=== PATIENT | female | born 1995 | race Caucasian/White ===

== ENCOUNTER 2019-04-03 12:53 | Emergency (ER) | payer OTHER ==
--- NOTE | 2019-04-03 13:01 | EDM.PDOC ---
ED HPI GENERAL MEDICAL PROBLEM - General Chief Complaint: Abdominal Pain Stated Complaint: ABDOMINAL PAIN Time Seen by Provider: 04/03/19 13:01 Source of Information: Reports: Patient History Limitations: Reports: No Limitations - History of Present Illness INITIAL COMMENTS - FREE TEXT/NARRATIVE: Patient is a 23-year-old female who is complaining having suprapubic pain which started about 11:00 this morning approximately 4 hours prior to arrival. She describes this is somewhat sharp and stabbing and denies any nausea vomiting or diarrhea. She denies any hematuria or dysuria. She has had previously similar pain in the past at that time she was told she had a miscarriage. Patient is currently sexually active and states she had menstrual. Over 4 weeks ago but her periods are always irregular. He is not using any control and is sexually active. Denies any vaginal discharge. She denies any fever chills or any worsening of the pain with eating though pain is somewhat worse with movement. Is any previous surgical history. Onset: Today Duration: Getting Worse Location: Reports: Pelvis Quality: Reports: Ache, Sharp Severity: Moderate Improves with: Reports: Rest Worsens with: Reports: Movement Associated Symptoms: Reports: No Other Symptoms Lower Abdominal Pain Score (Numeric/FACES): 5 - Related Data Allergies Allergy/AdvReac Type Severity Reaction Status Date / Time No Known Allergies Allergy Verified 04/03/19 13:14 Home Meds: Home Meds . [No Known Home Meds] 04/03/19 [History] ED ROS GENERAL - Review of Systems Review Of Systems: Comprehensive ROS is negative, except as noted in HPI. ED EXAM, GI/ABD - Physical Exam Exam: See Below Text/Narrative:: Exam: See Below Exam Limited By: No Limitations. Patient is somewhat uncomfortable secondary to pelvic pain. Head: Atraumatic Neck: Normal Inspection. No: Carotid Bruit, Lymphadenopathy (R) Respiratory/Chest: No Respiratory Distress, Lungs Clear, Normal Breath Sounds, No Accessory Muscle Use. No: Chest Non-Tender Cardiovascular: Normal Peripheral Pulses, Regular Rate, Rhythm, No Edema, No JVD GI/Abdominal: Normal Bowel Sounds, Tender in suprapubic area. No mass appreciated. There is no guarding appreciated. There is no rebound. Back Exam: Normal Inspection. No: CVA Tenderness (R) Extremities: Normal Inspection. No: No Pedal Edema Neurological: Alert, Oriented, Normal Cognition Psychiatric: Normal Affect Skin Exam: Warm Lymphatic: No Adenopathy Course - Vital Signs Text/Narrative:: Patient's urine and lab work is all unremarkable. test is negative. I am giving her some indomethacin for possible ovarian cystic pain. I will give her a prescription for additional. I recommend she follow-up with her special education science teacher this week for recheck. She is to return to ER if having fever or shaking chill, vomiting or worse pain. She is instructed she needs to take the Indocin with meals. Last Recorded V/S: Last Vital Signs Temp 36.3 C 04/03/19 13:15 Pulse 108 H 04/03/19 13:15 Resp 16 04/03/19 13:15 BP 113/55 L 04/03/19 13:15 Pulse Ox 99 04/03/19 13:15 - Orders/Labs/Meds Orders: Active Orders 24 hr Category Date Time Status UA W/MICROSCOPIC [URIN] Stat Lab 04/03/19 15:00 Results Labs: Laboratory Tests 04/03/19 04/03/19 04/03/19 Range/Units 13:53 13:53 15:00 WBC 9.57 (4.0-11.0) K/uL RBC 4.68 (4.30-5.90) M/uL Hgb 13.5 (12.0-16.0) g/dL Hct 40.4 (36.0-46.0) % MCV 86.3 (80.0-98.0) fL MCH 28.8 (27.0-32.0) pg MCHC 33.4 (31.0-37.0) g/dL RDW Std Deviation 41.1 (28.0-62.0) fl RDW Coeff of Miakla 13 (11.0-15.0) % Plt Count 345 (150-400) K/uL MPV 10.10 (7.40-12.00) fL Neut % (Auto) 80.4 H (48.0-80.0) % Lymph % (Auto) 15.4 L (16.0-40.0) % [place] % (Auto) 3.8 (0.0-15.0) % Eos % (Auto) 0.1 (0.0-7.0) % Baso % (Auto) 0.3 (0.0-1.5) % Neut # (Auto) 7.7 H (1.4-5.7) K/uL Lymph # (Auto) 1.5 (0.6-2.4) K/uL [place] # (Auto) 0.4 (0.0-0.8) K/uL Eos # (Auto) 0.0 (0.0-0.7) K/uL Baso # (Auto) 0.0 (0.0-0.1) K/uL Nucleated RBC % 0.0 /100WBC Nucleated RBCs # 0 K/uL Sodium 136 (136-145) mmol/L Potassium 4.0 (3.5-5.1) mmol/L Chloride 103 (98-107) mmol/L Carbon Dioxide 23.5 (21.0-32.0) mmol/L BUN 10 (7.0-18.0) mg/dL Creatinine 0.7 (0.6-1.0) mg/dL Est Cr Clr Drug Dosing 103.40 mL/min Estimated GFR (MDRD) > 60.0 ml/min Glucose 94 (74-106) mg/dL Calcium 8.8 (8.5-10.1) mg/dL Total Bilirubin 1.0 (0.2-1.0) mg/dL AST 12 L (15-37) IU/L ALT 18 (14-63) IU/L Alkaline Phosphatase 40 L (46-116) U/L Total Protein 7.7 (6.4-8.2) g/dL Albumin 4.4 (3.4-5.0) g/dL Globulin 3.3 (2.6-4.0) g/dL Albumin/Globulin Ratio 1.3 (0.9-1.6) Urine Color YELLOW Urine Appearance HAZY Urine pH 6.0 (5.0-8.0) Ur Specific [place] 1.025 (1.001-1.035) Urine Protein NEGATIVE (NEGATIVE) mg/dL Urine Glucose (UA) NEGATIVE (NEGATIVE) mg/dL Urine Ketones 40 H (NEGATIVE) mg/dL Urine Occult Blood NEGATIVE (NEGATIVE) Urine Nitrite NEGATIVE (NEGATIVE) Urine Bilirubin NEGATIVE (NEGATIVE) Urine Urobilinogen 1.0 (<2.0) EU/dL Ur Leukocyte Esterase NEGATIVE (NEGATIVE) Urine HCG, Qual (NEGATIVE) 02/09/20 Range/Units 15:00 WBC (4.0-11.0) K/uL RBC (4.30-5.90) M/uL Hgb (12.0-16.0) g/dL Hct (36.0-46.0) % MCV (80.0-98.0) fL MCH (27.0-32.0) pg MCHC (31.0-37.0) g/dL RDW Std Deviation (28.0-62.0) fl RDW Coeff of Mikala (11.0-15.0) % Plt Count (150-400) K/uL MPV (7.40-12.00) fL Neut % (Auto) (48.0-80.0) % Lymph % (Auto) (16.0-40.0) % [place] % (Auto) (0.0-15.0) % Eos % (Auto) (0.0-7.0) % Baso % (Auto) (0.0-1.5) % Neut # (Auto) (1.4-5.7) K/uL Lymph # (Auto) (0.6-2.4) K/uL [place] # (Auto) (0.0-0.8) K/uL Eos # (Auto) (0.0-0.7) K/uL Baso # (Auto) (0.0-0.1) K/uL Nucleated RBC % /100WBC Nucleated RBCs # K/uL Sodium (136-145) mmol/L Potassium (3.5-5.1) mmol/L Chloride (98-107) mmol/L Carbon Dioxide (21.0-32.0) mmol/L BUN (7.0-18.0) mg/dL Creatinine (0.6-1.0) mg/dL Est Cr Clr Drug Dosing mL/min Estimated GFR (MDRD) ml/min Glucose (74-106) mg/dL Calcium (8.5-10.1) mg/dL Total Bilirubin (0.2-1.0) mg/dL AST (15-37) IU/L ALT (14-63) IU/L Alkaline Phosphatase (46-116) U/L Total Protein (6.4-8.2) g/dL Albumin (3.4-5.0) g/dL Globulin (2.6-4.0) g/dL Albumin/Globulin Ratio (0.9-1.6) Urine Color Urine Appearance Urine pH (5.0-8.0) Ur Specific [place] (1.001-1.035) Urine Protein (NEGATIVE) mg/dL Urine Glucose (UA) (NEGATIVE) mg/dL Urine Ketones (NEGATIVE) mg/dL Urine Occult Blood (NEGATIVE) Urine Nitrite (NEGATIVE) Urine Bilirubin (NEGATIVE) Urine Urobilinogen (<2.0) EU/dL Ur Leukocyte Esterase (NEGATIVE) Urine HCG, Qual NEGATIVE (NEGATIVE) Meds: Medications Discontinued Medications Generic Name Dose Route Start Last Admin Trade Name Freq PRN Reason Stop Dose Admin Indomethacin 25 mg 04/03/19 15:15 Indocin PO 04/03/19 15:16 ONETIME ONE Departure - Departure Time of Disposition: 15:20 Disposition: Home, Self-Care 01 Condition: Good Clinical Impression: Pelvic pain - Discharge Information Instructions: Pelvic Pain, Female, [id number] Referrals: PCP,None [Primary Care Provider] - Forms: ED Department Discharge Additional Instructions: Indomethacin as prescribed. Follow-up with special education science teacher for recheck this week. Return to emergency department if symptoms are worse. Care Plan Goals: The following information is given to patients seen in the emergency department who are being discharged to home. This information is to outline your options for follow-up care. We provide all patients seen in our emergency department with a follow-up referral. The need for follow-up, as well as the timing and circumstances, are variable depending upon the specifics of your emergency department visit. If you don't have a primary care physician on staff, we will provide you with a referral. We always advise you to contact your personal physician following an emergency department visit to inform them of the circumstance of the visit and for follow-up with them and/or the need for any referrals to a consulting specialist. The emergency department will also refer you to a specialist when appropriate. This referral assures that you have the opportunity for follow-up care with a specialist. All of these measure are taken in an effort to provide you with optimal care, which includes your follow-up. Under all circumstances we always encourage you to contact your private physician who remains a resource for coordinating your care. When calling for follow-up care, please make the office aware that this follow-up is from your recent emergency room visit. If for any reason you are refused follow-up, please contact the [facility] Emergency Department at and asked to speak to the emergency department charge nurse. Sepsis Event Note - Focused Exam Vital Signs: Vital Signs Temp Pulse Resp BP Pulse Ox 04/03/19 13:15 36.3 C 108 H 16 113/55 L 99 Date Exam was Performed: 04/03/19 Time Exam was Performed: 15:16 - My Orders Last 24 Hours: My Active Orders 04/03/19 15:00 UA W/MICROSCOPIC [URIN] Stat - Assessment/Plan Last 24 Hours: My Active Orders 04/03/19 15:00 UA W/MICROSCOPIC [URIN] Stat
[2019-04-03 14:20] LABS: BLOOD UREA NITROGEN,BUN 10 mg/dL (7.0-18.0); CARBON DIOXIDE,CO2 23.5 mmol/L (21.0-32.0); CHLORIDE,CL 103 mmol/L (98-107); GLUCOSE RANDOM 94 mg/dL (74-106); SODIUM,NA 136 mmol/L (136-145)
[2019-04-03] MEDS ORDERED: Indomethacin 25 MG Cap PO ONE (15:15)
== END 2019-04-03 15:54 | disposition home or self-care (01) ==
LOC: MW.ED 12:53
DX: R10.2 Pelvic and perineal pain (principal)
CPT/HCPCS: 36415; 80053; 81001; 81025; 85025; 99284; A9270; 99283

== ENCOUNTER 2019-09-27 16:28 | Observation (INO) | payer MEDICAID, OTHER ==
--- NOTE | 2019-09-27 16:58 | PCM.PREANE ---
Preanesthetic Assessment - Anesthesia/Transfusion/Family Hx Anesthesia History: No Prior Anesthesia Family History of Anesthesia Reaction: No Transfusion History: No Prior Transfusion(s) - Review of Systems General: No Symptoms Pulmonary: No Symptoms Cardiovascular: No Symptoms Gastrointestinal: No Symptoms Neurological: No Symptoms Other: Reports: None - Physical Assessment NPO Status Date: 09/27/19 NPO Status Time: 13:00 (cassie and water) Height: 5 ft 4 in Weight: 69.581 kg ASA Class: 2E Mental Status: Alert & Oriented x3 Airway Class: Mallampati = 1 Dentition: Reports: Normal Dentition Thyro-Mental Finger Breadths: 3 ROM/Head Extension: Full Lungs: Clear to Auscultation, Normal Respiratory Effort Cardiovascular: Regular Rate, Regular Rhythm - Allergies Allergies/Adverse Reactions: Allergies Allergy/AdvReac Type Severity Reaction Status Date / Time No Known Allergies Allergy Verified 04/03/19 13:14 - Acknowledgements Anesthesia Type Planned: Spinal Pt an Appropriate Candidate for the Planned Anesthesia: Yes Alternatives and Risks of Anesthesia Discussed w Pt/Guardian: Yes Pt/Guardian Understands and Agrees with Anesthesia Plan: Yes PreAnesthesia Questionnaire HEENT History: Reports: None Cardiovascular History: Reports: None Respiratory History: Reports: Asthma Gastrointestinal History: Reports: None Genitourinary History: Reports: None CIRCULAR KNITTER History: Reports: : 2 Para: 0 (1 SAB last year) Other OB/BYN History: 19 weeks with cervical insuffiency Musculoskeletal History: Reports: None Neurological History: Reports: None Psychiatric History: Reports: Anxiety, Depression, Eating Disorders, PTSD, Suicide Attempt Endocrine/Metabolic History: Reports: None Hematologic History: Reports: None Immunologic History: Reports: None Oncologic (Cancer) History: Reports: None Dermatologic History: Reports: None - Infectious Disease History Infectious Disease History: Reports: None - Past Surgical History Head Surgeries/Procedures: Reports: None HEENT Surgical History: Reports: None Cardiovascular Surgical History: Reports: None Respiratory Surgical History: Reports: None GI Surgical History: Reports: None - SUBSTANCE USE Smoking Status *Q: Former Smoker (quit few months ago) Tobacco Use Within Last Twelve Months: Cigarettes - HOME MEDS Home Medications: Home Meds Indomethacin 25 mg PO TID PRN #30 capsule 04/03/19 [Rx] - CURRENT (IN HOUSE) MEDS Current Meds: Current Medications Lactated Ringer's (Ringers, Lactated) 1,000 mls @ 100 mls/hr IV ASDIRECTED MARINE
[2019-09-27] MEDS: Lactated Ringers 1,000 ML IV SCH ×2 (17:25→21:48)
[2019-09-27] MEDS ORDERED: Acetaminophen 325 MG Tab PO PRN (18:08)
[2019-09-27] MEDS ORDERED: Indomethacin 25 MG Cap PO ONE (18:08)
--- NOTE | 2019-09-27 18:16 | PCM.OPNOTE ---
- General Post-Op/Procedure Note Date of Surgery/Procedure: 09/27/19 Operative Procedure(s): Cervical cerclage placement Findings: Pre-procedure: Cervix visually dilated 1cm, membranes visible proximal to external cervical os, cervix thin Post-procedure: Cervix closed, 1cm in length Pre Op Diagnosis: 24yo @ 19w2d. Cervical insufficiency Post-Op Diagnosis: 24yo @ 19w2d. Cervical insufficiency Anesthesia Technique: Spinal Primary Surgeon: Eunice Rudd Gluing Machine Offbearer: Real Houston Gluing Machine Offbearer: Sandra Solis Pathology: None Fluid Replacement, Intraop: 700 EBL in mLs: 5 Complications: None Condition: Good Free Text/Narrative:: FHTs 150s prior to procedure FHTs 150s post-operatively
--- NOTE | 2019-09-27 18:23 | PCM.POSTAN ---
POST ANESTHESIA ASSESSMENT - MENTAL STATUS Mental Status: Alert, Oriented - VITAL SIGNS Vital Signs: Last Vital Signs Temp 36.7 C 09/27/19 17:57 Pulse 71 09/27/19 18:18 Resp 17 09/27/19 18:18 BP 106/59 L 09/27/19 18:18 Pulse Ox 100 09/27/19 18:18 - RESPIRATORY Respiratory Status: Respiratory Rate WNL, Airway Patent, O2 Saturation Stable - CARDIOVASCULAR CV Status: Pulse Rate WNL, Blood Pressure Stable - GASTROINTESTINAL GI Status: No Symptoms - PAIN Pain Score: 0 - POST OP HYDRATION Hydration Status: Adequate & Stable - OBSERVATIONS Free Text/Narrative:: can wiggle feet and feeling is starting to return
--- NOTE | 2019-09-27 21:18 | OR ---
SURGEON: Eunice Rudd MD DATE OF PROCEDURE: 09/27/2019 PREOPERATIVE DIAGNOSES: 1. A 24-year-old, G2, P0, at 19 weeks and 2 days' gestation. 2. Cervical insufficiency on ultrasound and exam. POSTOPERATIVE DIAGNOSES: 1. A 24-year-old, G2, P0, at 19 weeks and 2 days' gestation. 2. Cervical insufficiency on ultrasound and exam. PROCEDURE: Cervical cerclage. PRIMARY SURGEON: Dr. Eunice Rudd. ANESTHESIA: Spinal. ART EDUCATION PROFESSOR: Dr. Real Houston and Luiz Solis, medical student. FINDINGS: Pre-procedure, cervix visually dilated 1 cm with membranes visible proximal to the external cervical os with thin cervix. Postprocedure cervix closed and 1 cm in length. cardiac activity documented pre and post procedure. INDICATIONS: This is a 24-year-old, G2, P0-0-1-0 at 19 weeks and 2 days' gestation by early ultrasound, who had been seen for routine OB appointment and anatomy ultrasound today in clinic. During anatomy ultrasound, cervical dilation was suspected on abdominal imaging. A transvaginal ultrasound was obtained and confirmed thin cervix with cervical dilation. Speculum exam was performed, which showed thin cervix with approximately 1 cm dilated with membrane visible proximal to the external cervical os. The need for emergency rescue cerclage was discussed with the patient and reviewed with Maternal Medicine. The patient agreed to the procedure after discussion of the risks and benefits. DESCRIPTION OF PROCEDURE: The patient was taken to the operating room where spinal anesthesia was obtained. She was placed in dorsal lithotomy position with legs in Yellofins stirrups. She was prepared and draped in normal sterile fashion. The bladder was drained. A weighted speculum was inserted into the vagina and the cervix was grasped carefully with a ring forceps. A Paz catheter was inserted through the dilated cervix and inflated with 20 mL of normal saline to reduce the visible membranes. A pursestring suture of 1-0 Prolene was placed at the vesicocervical junction. The Paz catheter was removed as the pursestring suture was being tied. A sponge stick was used to clean blood out of the vagina. The cervix appeared to be closed and roughly 1 cm in length postoperatively. The patient tolerated the procedure well. All instruments removed from her vagina. She will be the admitting for observation to Labor and Delivery for monitoring overnight. She will receive Indocin for tocolysis. [id number] / MODL /[id number]
[2019-09-27] MEDS: busPIRone 5 MG Tab PO SCH (21:50)
[2019-09-27] MEDS: metroNIDAZOLE 250 MG Tab PO SCH (21:50)
[2019-09-28] MEDS: Indomethacin 25 MG Cap PO SCH ×3 (00:29→12:05)
--- NOTE | 2019-09-28 07:29 | PCM.PN ---
- General Info Date of Service: 09/28/19 Subjective Update: Patient with mild intermittent cramps, rates them at 3/10. Light spotting. Functional Status: Reports: Tolerating Diet, Urinating - Review of Systems General: Reports: No Symptoms HEENT: Reports: No Symptoms Pulmonary: Reports: No Symptoms Cardiovascular: Reports: No Symptoms Gastrointestinal: Reports: No Symptoms Genitourinary: Reports: No Symptoms Musculoskeletal: Reports: No Symptoms Skin: Reports: No Symptoms Neurological: Reports: No Symptoms Psychiatric: Reports: No Symptoms - Patient Data Vitals - Most Recent: Last Vital Signs Temp 36.6 C 09/28/19 03:35 Pulse 86 09/28/19 03:35 Resp 18 09/28/19 03:35 BP 98/56 L 09/28/19 03:35 Pulse Ox 100 09/28/19 03:35 Weight - Most Recent: 69.581 kg I&O - Last 24 Hours: Intake & Output 09/27/19 09/28/19 09/28/19 22:59 06:59 14:59 Intake Total 1700 Balance 1700 Lab Results Last 24 Hours: Laboratory Results - last 24 hr 09/27/19 Range/Units 16:35 COVID-19 (SHONA) NEGATIVE (NEGATIVE) Med Orders - Current: Current Medications Acetaminophen (Tylenol) 650 mg PO Q4H PRN PRN Reason: Abdominal Pain Buspirone HCl (Buspar) 10 mg PO BID [facility] Last Admin: 09/27/19 21:50 Dose: 10 mg Documented by: Lactated Ringer's (Ringers, Lactated) 1,000 mls @ 100 mls/hr IV ASDIRECTED [facility] Last Admin: 09/27/19 21:48 Dose: 100 mls/hr Documented by: Indomethacin (Indocin) 25 mg PO Q6H [facility] Last Admin: 09/28/19 06:06 Dose: 25 mg Documented by: Metronidazole (Metronidazole) 500 mg PO Q12HR [facility] Last Admin: 09/27/19 21:50 Dose: 500 mg Documented by: Prenat Multivit/Barry/Iron/Folic Ac ( Mtr) 1 each PO DAILY [facility] Sertraline HCl (Zoloft) 50 mg PO DAILY [facility] Discontinued Medications Indomethacin (Indocin) 50 mg PO ONETIME ONE Stop: 09/27/19 18:09 Last Admin: 09/27/19 18:43 Dose: 50 mg Documented by: - Exam General: Alert, Oriented Neck: Supple Lungs: Normal Respiratory Effort GI/Abdominal Exam: Soft, Non-Tender, No Distention (Female) Exam: Deferred Extremities: No Pedal Edema Skin: Warm, Dry, Intact Neurological: No New Focal Deficit Psy/Mental Status: Alert, Normal Affect, Normal Mood Sepsis Event Note - Focused Exam Vital Signs: Vital Signs Temp Pulse Resp BP Pulse Ox 09/28/19 03:35 36.6 C 86 18 98/56 L 100 09/28/19 00:29 36.7 C 93 15 99/63 100 Date Exam was Performed: 09/28/19 Time Exam was Performed: 07:24 - Problem List & Annotations (1) Cervical insufficiency in in second trimester, antepartum SNOMED Code(s): 6956234, 66485265, 09588591 Code(s): O34.32 - MATERNAL CARE FOR CERVICAL INCOMPETENCE, SECOND TRIMESTER Status: Acute Current Visit: Yes (2) Cervical cerclage suture present in second trimester SNOMED Code(s): 45892148, 07982489 Code(s): O34.32 - MATERNAL CARE FOR CERVICAL INCOMPETENCE, SECOND TRIMESTER Status: Acute Current Visit: Yes - Problem List Review Problem List Initiated/Reviewed/Updated: Yes - My Orders Last 24 Hours: My Active Orders 09/27/19 Dinner Regular Diet [DIET] 09/27/19 18:06 Patient Status [ADT] Routine Vital Signs [RC] PER UNIT ROUTINE Resuscitation Status Routine 09/27/19 18:07 Notify Provider Vital Signs [RC] PRN 09/27/19 18:08 Antiembolic Devices [RC] .Routine Bedrest Bathroom Privileges [RC] ASDIRECTED Trendelenburg [RC] ASDIRECTED VTE/DVT Education [RC] PER UNIT ROUTINE Acetaminophen [Tylenol] 650 mg PO Q4H PRN DVT/VTE Prophylaxis Reflex [OM.PC] Routine 09/27/19 18:10 TOCO Ext [Uterine Contraction Monitor TOCO] [WOMSER] Routine 09/27/19 18:13 Uterine Contraction Monitor [RC] Click to Edit 09/27/19 21:00 metroNIDAZOLE 500 mg PO Q12HR 09/27/19 21:26 Heart Tones [RC] QSHIFT 09/27/19 21:30 busPIRone [Buspar] 10 mg PO BID 09/28/19 00:00 Indomethacin [Indocin] 25 mg PO Q6H 09/28/19 09:00 Vit/FA/Fe Fumarate/Se [ MTR] 1 each PO DAILY Sertraline [Zoloft] 50 mg PO DAILY - Assessment Assessment:: 24yo @ 19w3d, POD#1 s/p emergency cervical cerclage placement - Plan Plan:: 1. Continue Indomethacin x48 hours 2. Reviewed precautions and restrictions until 24 weeks - no heavy lifting, pelvic rest, no strenuous activity; avoid bed rest due to increased risk of VTE and deconditioning 3. Continue Flagyl for BV for a total of 7 days 4. Has appointment scheduled for Thursday, 09/29 in clinic
[2019-09-28] MEDS: Lactated Ringers 1,000 ML IV SCH (07:47)
[2019-09-28] MEDS: busPIRone 5 MG Tab PO SCH (08:48)
[2019-09-28] MEDS: metroNIDAZOLE 250 MG Tab PO SCH (08:49)
[2019-09-28] MEDS ORDERED: Prenatal Multivitamin and Multimineral with Iron Tab PO SCH (09:00)
[2019-09-28] MEDS ORDERED: Sertraline 50 MG Tab PO SCH (09:00)
--- NOTE | 2019-09-28 09:11 | PCM48HPAN ---
Post Anesthesia Note - EVALUATION WITHIN 48HRS OF ANESTHETIC Vital Signs in Normal Range: Yes Patient Participated in Evaluation: Yes Respiratory Function Stable: Yes Airway Patent: Yes Cardiovascular Function Stable: Yes Hydration Status Stable: Yes Pain Control Satisfactory: Yes (3/10 pain, "a little sore, but not bad" per pt. Denies spinal site pain.) Nausea and Vomiting Control Satisfactory: Yes (mild nausea last night, but resolved, and no vomiting. Taking PO well.) Mental Status Recovered: Yes Vital Signs: Last Vital Signs Temp 36.6 C 09/28/19 03:35 Pulse 86 09/28/19 03:35 Resp 18 09/28/19 03:35 BP 98/56 L 09/28/19 03:35 Pulse Ox 100 09/28/19 03:35 - COMMENTS/OBSERVATIONS Free Text/Narrative:: Reports full return of strength and sensation in BLE, ambulating well.
== END 2019-09-28 14:05 | disposition home or self-care (01) ==
LOC: MW.SDS 16:28 → MW.OB 18:06
PROVIDERS: ADMIT Obstetrics & Gynecology; ATTEND Obstetrics & Gynecology
DX: O34.32 Maternal care for cervical incompetence, second trimester (principal); O28.3 Abnormal ultrasonic finding on antenatal screening of mother; O99.512 Diseases of the respiratory system complicating pregnancy, second trimester; J45.909 Unspecified asthma, uncomplicated; O99.342 Other mental disorders complicating pregnancy, second trimester; F41.9 Anxiety disorder, unspecified; F32.9 Major depressive disorder, single episode, unspecified; F43.10 Post-traumatic stress disorder, unspecified; Z11.59 Encounter for screening for other viral diseases; Z87.891 Personal history of nicotine dependence; Z3A.19 19 weeks gestation of pregnancy
CPT/HCPCS: 59320; 87635; A9270; G0378; J7120; 00948; U0002

== ENCOUNTER 2019-11-14 05:31 | Inpatient (IN) | payer MEDICAID ==
[2019-11-14] MEDS ORDERED: Betamethasone Acetate/Betamethasone Sod Phosphate 30 MG/5 ML MDV IM ONE (07:04)
[2019-11-14] MEDS ORDERED: Ampicillin 2 GM in Sodium Chloride 0.9% 100 ML IV ONE (07:05)
[2019-11-14] MEDS: Lactated Ringers 1,000 ML IV SCH ×2 (07:10→09:47)
[2019-11-14] MEDS ORDERED: Sodium Chloride 0.9% 2.5 ML Syringe FLUSH PRN (07:11)
[2019-11-14] MEDS ORDERED: Indomethacin 25 MG Cap PO ONE (07:11)
[2019-11-14] MEDS ORDERED: Sodium Chloride 0.9% 10 ML SDV IV PRN (07:11)
[2019-11-14] MEDS ORDERED: Sodium Chloride 0.9% 10 ML Syringe FLUSH PRN (07:11)
[2019-11-14] MEDS ORDERED: Calcium Gluconate 10% 1 GM/10 ML SDV IV PRN (07:11)
[2019-11-14] MEDS ORDERED: Magnesium Sulfate/Water 4 GM in Premix Bag 1 BAG IV ONE (07:11)
[2019-11-14] MEDS ORDERED: Magnesium Sulfate/Water 20 GM/500 ML BAG IV SCH (07:15)
[2019-11-14] MEDS ORDERED: Oxytocin/0.9 % Sodium Chloride 30 UNIT/500 ML BAG ONE (07:21)
[2019-11-14] MEDS ORDERED: Betamethasone Acetate/Betamethasone Sod Phosphate 30 MG/5 ML MDV ONE (07:21)
[2019-11-14] MEDS ORDERED: Magnesium Sulfate/Water 100 ML ONE (07:22)
[2019-11-14] MEDS ORDERED: Lidocaine 1% 50 ML MDV INJECT PRN (07:35)
[2019-11-14] MEDS ORDERED: Carboprost Tromethamine 250 MCG/1 ML Amp IM PRN (07:35)
[2019-11-14] MEDS ORDERED: Methylergonovine 0.2 MG/1 ML Amp IM PRN (07:35)
[2019-11-14] MEDS ORDERED: Misoprostol 200 MCG Tab PO PRN (07:35)
[2019-11-14] MEDS ORDERED: Nalbuphine 10 MG/1 ML Vial IVPUSH PRN (07:35)
[2019-11-14] MEDS ORDERED: Water For Irrigation,Sterile 1,000 ML Container IRR PRN (07:35)
[2019-11-14] MEDS ORDERED: Tranexamic Acid 1,000 MG in Sodium Chloride 0.9% 100 ML IV PRN (07:35)
[2019-11-14] MEDS ORDERED: Butorphanol 1 MG/ML SDV IVPUSH PRN (07:35)
[2019-11-14] MEDS ORDERED: Oxytocin/0.9 % Sodium Chloride 30 UNIT/500 ML BAG IV SCH (07:45)
--- NOTE | 2019-11-14 07:54 | PCM.LDHP ---
L&D History of Present Illness - General Date of Service: 11/14/19 Admit Problem/Dx: Patient Status Order with Admit Dx/Problem 11/14/19 05:40 Patient Status [ADT] Routine Admission Diagnosis/Problem Admission Diagnosis/Problem - History of Present Illness Introduction:: 24yo @26w1d SANDRA 02/19/2020 by 14w2d US. complicated by cervical insufficiency at 19wk, was 1cm dilated and received a rescue cerclage. She did well after and had normal anatomy US. She started to have back pain and contractions starting yesterday, got increasingly stronger. When she presented to L&D, she was alejandra every 5min, found to be 4cm dilated with bulging membranes, cerclage is still in place. She also had light bloody show. - Related Data Allergies/Adverse Reactions: Allergies Allergy/AdvReac Type Severity Reaction Status Date / Time No Known Allergies Allergy Verified 11/14/19 05:58 Home Medications: Home Meds Indomethacin 25 mg PO TID PRN #30 capsule 04/03/19 [Rx] Indomethacin 25 mg PO Q6H #4 capsule 09/28/19 [Rx] metroNIDAZOLE [Metronidazole] 500 mg PO BID 6 Days #12 tablet 09/28/19 [Rx] Past Medical History HEENT History: Reports: None Cardiovascular History: Reports: None Respiratory History: Reports: Asthma Gastrointestinal History: Reports: None Genitourinary History: Reports: None [employer] History: Reports: Other OB/BYN History: 19 weeks with cervical insuffiency Musculoskeletal History: Reports: None Neurological History: Reports: None Psychiatric History: Reports: Anxiety, Depression, Eating Disorders, PTSD, Suicide Attempt Endocrine/Metabolic History: Reports: None Hematologic History: Reports: None Immunologic History: Reports: None Oncologic (Cancer) History: Reports: None Dermatologic History: Reports: None - Infectious Disease History Infectious Disease History: Reports: None - Past Surgical History Head Surgeries/Procedures: Reports: None HEENT Surgical History: Reports: None Cardiovascular Surgical History: Reports: None Respiratory Surgical History: Reports: None GI Surgical History: Reports: None Social & Family History - Family History Family Medical History: Noncontributory - Caffeine Use Caffeine Use: Reports: Coffee H&P Review of Systems - Review of Systems: Review Of Systems: See Below General: Reports: No Symptoms HEENT: Reports: No Symptoms Pulmonary: Reports: No Symptoms Cardiovascular: Reports: No Symptoms Gastrointestinal: Reports: No Symptoms Genitourinary: Reports: No Symptoms Musculoskeletal: Reports: No Symptoms Skin: Reports: No Symptoms Psychiatric: Reports: No Symptoms Neurological: Reports: No Symptoms Hematologic/Lymphatic: Reports: No Symptoms Immunologic: Reports: No Symptoms L&D Exam - Exam Exam: See Below - Vital Signs Weight: 174 lb - OB Specific Contraction Intensity: Moderate to Strong Heart Tones per Min: 140 Heart Rate (FHR) Variability: Moderate (6-25 bmp) Presentation: Vertex - Stringer Score Stringer Score Consistency: Soft Stringer Score Dilation: 3-4 cm Stringer Score 's Station: -1 ,0 - Exam General: Alert, Oriented, Cooperative Neck: Supple, Trachea Midline Lungs: Normal Respiratory Effort GI/Abdominal Exam: Soft, Non-Tender, No Distention Genitourinary: Other Extremities: Normal Inspection, Normal Range of Motion, Non-Tender, No Pedal Edema Skin: Warm, Dry, Intact Neurological: Cranial Nerves Intact Psychiatric: Alert, Normal Affect, Normal Mood - Patient Data Lab Results Last 24 hrs: Laboratory Results - last 24 hr 11/14/19 Range/Units 06:55 Membrane Rupture POSITIVE Result Diagrams: 11/14/19 07:36 Problem List Initiated/Reviewed/Updated: Yes Orders Last 24hrs: Active Orders 24 hr Category Date Time Status Patient Status [ADT] Routine ADT 11/14/19 05:40 Active Bedrest [RC] ASDIRECTED Care 11/14/19 07:11 Active Communication Order [RC] PRN Care 11/14/19 07:11 Active Communication Order [RC] PRN Care 11/14/19 07:11 Active Equipment to Bedside [RC] PRN Care 11/14/19 07:12 Active Heart Tones [RC] ASDIRECTED Care 11/14/19 07:12 Active Non Stress Test [RC] PER UNIT ROUTINE Care 11/14/19 05:59 Active Height and Weight [RC] DAILY Care 11/14/19 07:11 Active Intake and Output [RC] QSHIFT Care 11/14/19 07:11 Active Notify Provider Status Change [RC] ASDIRECTED Care 11/14/19 07:12 Active Notify Provider [RC] PRN Care 11/14/19 07:11 Active Oxygen Therapy [RC] PRN Care 11/14/19 07:11 Active Peripheral IV Care [RC] PRN Care 11/14/19 07:11 Active Up ad Marielos [RC] ASDIRECTED Care 11/14/19 05:59 Active Vaginal Exam [RC] Click to Edit Care 11/14/19 05:59 Active Vital Signs [RC] PER UNIT ROUTINE Care 11/14/19 05:59 Active CBC WITH AUTO DIFF [HEME] Routine Lab 11/14/19 07:04 Ordered CORONAVIRUS COVID-19 PCR PHL Urgent Lab 11/14/19 07:05 Ordered MAGNESIUM [CHEM] Q6H Lab 11/14/19 12:00 Ordered MAGNESIUM [CHEM] Q6H Lab 11/14/19 18:00 Ordered MAGNESIUM [CHEM] Q6H Lab 11/15/19 00:00 Ordered MAGNESIUM [CHEM] Q6 Lab 11/15/19 06:00 Ordered RPR (SYPHILIS SERO) W/ RFLX [REF] Urgent Lab 11/14/19 07:15 Ordered TYPE AND SCREEN [BBK] Routine Lab 11/14/19 07:11 Ordered Calcium Gluconate Med 11/14/19 07:11 Active 1 gm IV ASDIRECTED PRN Lactated Ringers [Ringers, Lactated] 1,000 ml Med 11/14/19 07:15 Active IV ASDIRECTED Magnesium Sulfate/Water [Magnesium Sulfate in Water Med 11/14/19 07:15 Active Premix] 20 gm in 500 ml IV ASDIRECTED Sodium Chloride 0.9% [Normal Saline] Med 11/14/19 07:11 Active 10 ml IV ASDIRECTED PRN Sodium Chloride 0.9% [Saline Flush] Med 11/14/19 07:11 Active 10 ml FLUSH ASDIRECTED PRN Sodium Chloride 0.9% [Saline Flush] Med 11/14/19 07:11 Active 2.5 ml FLUSH ASDIRECTED PRN Deep Tendon Reflexes [WOMSER] Q1H Oth 11/14/19 07:15 Ordered Deep Tendon Reflexes [WOMSER] Q1H Oth 11/14/19 08:15 Ordered Deep Tendon Reflexes [WOMSER] Q1H Oth 11/14/19 09:15 Ordered Deep Tendon Reflexes [WOMSER] Q1H Oth 11/14/19 10:15 Ordered Deep Tendon Reflexes [WOMSER] Q1H Oth 11/14/19 11:15 Ordered Deep Tendon Reflexes [WOMSER] [address] 11/14/19 12:15 Ordered Deep Tendon Reflexes [WOMSER] [address] 11/14/19 13:15 Ordered Deep Tendon Reflexes [WOMSER] [address] 11/14/19 14:15 Ordered Deep Tendon Reflexes [WOMSER] [address] 11/14/19 15:15 Ordered Deep Tendon Reflexes [WOMSER] [address] 11/14/19 16:15 Ordered Deep Tendon Reflexes [WOMSER] [address] 11/14/19 17:15 Ordered Deep Tendon Reflexes [WOMSER] [address] 11/14/19 18:15 Ordered Deep Tendon Reflexes [WOMSER] [address] 11/14/19 19:15 Ordered Deep Tendon Reflexes [WOMSER] [address] 11/14/19 20:15 Ordered Deep Tendon Reflexes [WOMSER] [address] 11/14/19 21:15 Ordered Deep Tendon Reflexes [WOMSER] [address] 11/14/19 22:15 Ordered Deep Tendon Reflexes [WOMSER] [address] 11/14/19 23:15 Ordered Deep Tendon Reflexes [WOMSER] [address] 11/15/19 00:15 Ordered Deep Tendon Reflexes [WOMSER] [address] 11/15/19 01:15 Ordered Deep Tendon Reflexes [WOMSER] [address] 11/15/19 02:15 Ordered Deep Tendon Reflexes [WOMSER] [address] 11/15/19 03:15 Ordered Deep Tendon Reflexes [WOMSER] [address] 11/15/19 04:15 Ordered Deep Tendon Reflexes [WOMSER] [address] 11/15/19 05:15 Ordered Deep Tendon Reflexes [WOMSER] [address] 11/15/19 06:15 Ordered Electronic Heart Tones Ext w TOCO [WOMSER] Per Ot 11/14/19 07:11 O rdered Unit Routine Peripheral IV Insertion Adult [OM.PC] Routine Ot 11/14/19 07:11 Ordered Resuscitation Status Routine Resus Stat 11/14/19 05:59 Ordered Medication Orders Calcium Gluconate (Calcium Gluconate) 1 gm IV ASDIRECTED PRN PRN Reason: respiratory distress Lactated Ringer's (Ringers, Lactated) 1,000 mls @ 150 mls/hr IV ASDIRECTED [facility] Last Admin: 11/14/19 07:10 Dose: 500 mls/hr Documented by: OG Magnesium Sulfate (Magnesium Sulfate In Water Premix) 20 gm in 500 mls @ 50 mls/hr IV ASDIRECTED [facility] Sodium Chloride (Saline Flush) 10 ml FLUSH ASDIRECTED PRN PRN Reason: Keep Vein Open Sodium Chloride (Saline Flush) 2.5 ml FLUSH ASDIRECTED PRN PRN Reason: Keep Vein Open Sodium Chloride (Normal Saline) 10 ml IV ASDIRECTED PRN PRN Reason: IV Use Assessment/Plan Comment:: 24yo @26w1d presenting with labor. Hx of cervical insufficiency with cerclage in place. - Will admit for PTL, admission labs and COVID19. - Cat 1 tracing - 5cm dilated with bulging membranes and cerclage in place. Continues to have strong contractions every 5-7min - Cephalic by bedside sono and exam - Received betamethasone x1, 2g ampicillin IV, Mag sulfate 4g load, and indomethacin 100mg PO - Patient in active labor, not safe for transfer to high level facility due to risk of imminent delivery. Informed Peds and [facility] transport team who will come to evaluate the baby. Signed out to who will be assuming care of the patient.
[2019-11-14] MEDS ORDERED: Terbutaline 1 MG/ML SDV SUBCUT ONE (08:54)
[2019-11-14] MEDS ORDERED: Terbutaline 1 MG/ML SDV ONE (08:57)
[2019-11-14] MEDS ORDERED: Ropivacaine HCl/PF 100 ML ONE (09:28)
[2019-11-14] MEDS ORDERED: ePHEDrine 50 MG/ML SDV ONE (09:51)
--- NOTE | 2019-11-14 10:09 | PCM.PREANE ---
Preanesthetic Assessment - Anesthesia/Transfusion/Family Hx Anesthesia History: No Prior Anesthesia (difficult spinal for cervical cerclage) Transfusion History: No Prior Transfusion(s) - Review of Systems General: No Symptoms Pulmonary: No Symptoms Cardiovascular: No Symptoms Gastrointestinal: No Symptoms Neurological: No Symptoms Other: Reports: None - Physical Assessment Height: 1.63 m Weight: 78.925 kg ASA Class: 2 Mental Status: Alert & Oriented x3 Airway Class: Mallampati = 2 Dentition: Reports: Normal Dentition Thyro-Mental Finger Breadths: 3 Mouth Opening Finger Breadths: 3 ROM/Head Extension: Full Lungs: Clear to Auscultation, Normal Respiratory Effort Cardiovascular: Regular Rate, Regular Rhythm - Lab Values: Laboratory Last Values WBC 13.68 K/uL (4.0-11.0) H 11/14/19 07:36 RBC 3.99 M/uL (4.30-5.90) L 11/14/19 07:36 Hgb 11.5 g/dL (12.0-16.0) L 11/14/19 07:36 Hct 35.8 % (36.0-46.0) L 11/14/19 07:36 MCV 89.7 fL (80.0-98.0) 11/14/19 07:36 MCH 28.8 pg (27.0-32.0) 11/14/19 07:36 MCHC 32.1 g/dL (31.0-37.0) 11/14/19 07:36 RDW Std Deviation 42.7 fl (28.0-62.0) 11/14/19 07:36 RDW Coeff of Mikala 13 % (11.0-15.0) 11/14/19 07:36 Plt Count 213 K/uL (150-400) 11/14/19 07:36 MPV 10.20 fL (7.40-12.00) 11/14/19 07:36 Neut % (Auto) 85.0 % (48.0-80.0) H 11/14/19 07:36 Lymph % (Auto) 9.7 % (16.0-40.0) L 11/14/19 07:36 [place] % (Auto) 4.8 % (0.0-15.0) 11/14/19 07:36 Eos % (Auto) 0.4 % (0.0-7.0) 11/14/19 07:36 Baso % (Auto) 0.1 % (0.0-1.5) 11/14/19 07:36 Neut # (Auto) 11.6 K/uL (1.4-5.7) H 11/14/19 07:36 Lymph # (Auto) 1.3 K/uL (0.6-2.4) 11/14/19 07:36 [place] # (Auto) 0.7 K/uL (0.0-0.8) 11/14/19 07:36 Eos # (Auto) 0.1 K/uL (0.0-0.7) 11/14/19 07:36 Baso # (Auto) 0.0 K/uL (0.0-0.1) 11/14/19 07:36 Nucleated RBC % 0.0 /100WBC 11/14/19 07:36 Nucleated RBCs # 0 K/uL 11/14/19 07:36 Membrane Rupture POSITIVE 11/14/19 06:55 SARS-CoV-2 RNA (SHONA) NEGATIVE (NEGATIVE) 11/14/19 07:20 Blood Type B POSITIVE 11/14/19 07:36 Antibody Screen NEGATIVE 11/14/19 07:36 - Allergies Allergies/Adverse Reactions: Allergies Allergy/AdvReac Type Severity Reaction Status Date / Time No Known Allergies Allergy Verified 11/14/19 05:58 - Acknowledgements Anesthesia Type Planned: Epidural (patient understands and accepts risks and benefits of epidural. all questions answered. patient signed the consent) Pt an Appropriate Candidate for the Planned Anesthesia: Yes Alternatives and Risks of Anesthesia Discussed w Pt/Guardian: Yes Pt/Guardian Understands and Agrees with Anesthesia Plan: Yes PreAnesthesia Questionnaire HEENT History: Reports: None Cardiovascular History: Reports: None Respiratory History: Reports: Asthma (used inhaler 6 months ago) Gastrointestinal History: Reports: GERD (during ) Genitourinary History: Reports: None [employer]IST History: Reports: Other OB/BYN History: 19 weeks with cervical insuffiency Musculoskeletal History: Reports: Back Pain, Chronic (began at 14 y.o. not sure of etiology. had some radiculopathy in both legs occasionally. was told that she might have fibromyalgia.) Neurological History: Reports: None Psychiatric History: Reports: Anxiety, Depression, Eating Disorders, PTSD, Suicide Attempt Endocrine/Metabolic History: Reports: None Hematologic History: Reports: None Immunologic History: Reports: None Oncologic (Cancer) History: Reports: None Dermatologic History: Reports: None - Infectious Disease History Infectious Disease History: Reports: None - Past Surgical History Head Surgeries/Procedures: Reports: None HEENT Surgical History: Reports: None Cardiovascular Surgical History: Reports: None Respiratory Surgical History: Reports: None GI Surgical History: Reports: None Female Surgical History: Reports: Other (See Below) (cervical cerclage) - SUBSTANCE USE Smoking Status *Q: Current Every Day Smoker (but none during ) Days Per Week of Alcohol Use: 0 (none during ) Recreational Drug Use History: No - HOME MEDS Home Medications: Home Meds Indomethacin 25 mg PO TID PRN #30 capsule 04/03/19 [Rx] Indomethacin 25 mg PO Q6H #4 capsule 09/28/19 [Rx] metroNIDAZOLE [Metronidazole] 500 mg PO BID 6 Days #12 tablet 09/28/19 [Rx] - CURRENT (IN HOUSE) MEDS Current Meds: Current Medications Butorphanol Tartrate (Stadol) 1 mg IVPUSH Q1H PRN PRN Reason: Pain Calcium Gluconate (Calcium Gluconate) 1 gm IV ASDIRECTED PRN PRN Reason: respiratory distress Carboprost Tromethamine (Hemabate Ds) 250 mcg IM ASDIRECTED PRN PRN Reason: Post Hemorrhage Lactated Ringer's (Ringers, Lactated) 1,000 mls @ 150 mls/hr IV ASDIRECTED [facility] Last Admin: 11/14/19 09:47 Dose: 500 mls/hr Documented by: Magnesium Sulfate (Magnesium Sulfate In Water Premix) 20 gm in 500 mls @ 50 mls/hr IV ASDIRECTED [facility] Last Admin: 11/14/19 07:52 Dose: 2 gm/hr, 50 mls/hr Documented by: Oxytocin/Sodium Chloride (Oxytocin 30 Unit/500 Ml-Ns) 30 unit in 500 mls @ 999 mls/hr IV TITRATE [facility] Tranexamic Acid 1,000 mg/ (Sodium Chloride) 110 mls @ 660 mls/hr IV ONETIME PRN PRN Reason: Bleeding Lidocaine HCl (Xylocaine 1%) 50 ml INJECT ONETIME PRN PRN Reason: Laceration repair Methylergonovine Maleate (Methergine) 0.2 mg IM ASDIRECTED PRN PRN Reason: Post Hemorrhage Misoprostol (Cytotec) 200 mcg PO ONETIME PRN PRN Reason: Post Hemorrhage Sodium Chloride (Saline Flush) 10 ml FLUSH ASDIRECTED PRN PRN Reason: Keep Vein Open Sodium Chloride (Saline Flush) 2.5 ml FLUSH ASDIRECTED PRN PRN Reason: Keep Vein Open Sodium Chloride (Normal Saline) 10 ml IV ASDIRECTED PRN PRN Reason: IV Use Sterile Water (Sterile Water For Irrigation) 1,000 ml IRR ASDIRECTED PRN PRN Reason: delivery Discontinued Medications Betamethasone Acet/Betameth SodPhos (Celestone Soluspan 6 Mg/Ml) 12 mg IM ONETIME ONE Stop: 11/14/19 07:05 Last Admin: 11/14/19 07:29 Dose: 2 ml Documented by: Betamethasone Acet/Betameth SodPhos (Celestone Soluspan 6 Mg/Ml) Confirm Administered Dose 30 mg .ROUTE .STK-MED ONE Stop: 11/14/19 07:22 Ephedrine Sulfate (Ephedrine Sulfate) Confirm Administered Dose 50 mg .ROUTE .STK-MED ONE Stop: 11/14/19 09:52 Ampicillin Sodium 2 gm/ Sodium (Chloride) 100 mls @ 200 mls/hr IV ONETIME ONE Stop: 11/14/19 07:34 Last Admin: 11/14/19 07:53 Dose: 200 mls/hr Documented by: Magnesium Sulfate 4 gm/ Premix 100 mls @ 300 mls/hr IV BOLUS ONE Stop: 11/14/19 07:30 Last Admin: 11/14/19 07:34 Dose: 300 mls/hr Documented by: Oxytocin/Sodium Chloride (Oxytocin 30 Unit/500 Ml-Ns) Confirm Administered Dose 30 unit in 500 mls @ as directed .ROUTE .STK-MED ONE Stop: 11/14/19 07:22 Magnesium Sulfate (Magnesium Sulfate In Water Premix) Confirm Administered Dose 100 mls @ as directed .ROUTE .STK-MED ONE Stop: 11/14/19 07:23 Ropivacaine (Naropin 0.2%) Confirm Administered Dose 100 mls @ as directed .ROUTE .STK-MED ONE Stop: 11/14/19 09:29 Indomethacin (Indocin) 100 mg PO ONETIME ONE Stop: 11/14/19 07:12 Last Admin: 11/14/19 07:49 Dose: 100 mg Documented by: Terbutaline Sulfate (Brethine) 0.25 mg SUBCUT ONETIME ONE Stop: 11/14/19 08:55 Last Admin: 11/14/19 09:06 Dose: 0.25 mg Documented by: Terbutaline Sulfate (Brethine) Confirm Administered Dose 1 mg .ROUTE .K-MED ONE Stop: 11/14/19 08:58
--- NOTE | 2019-11-14 10:39 | US ---
Limited obstetrical ultrasound: Multiple real-time images were obtained for position. Comparison: No previous studies are currently is available. Dates: Current ultrasound: SANDRA 02/20/20, gestational age 28 weeks 0 days presentation: Cephalic Amniotic fluid: ELOISA 7.77 cm Measurements: BPD: 6.25 cm - 25 weeks 3 days Head circumference: 24.80 cm - 26 weeks 6 days Abdominal circumference: 20.86 cm - 25 weeks 3 days Femur length: 4.95 cm - 26 weeks 5 days Estimated weight: 880 g (1 lb. 15 oz.) Heart rate: 121 BPM Impression: 1. Single intrauterine fetus currently cephalic in presentation. Dates as noted above. 2. Low ELOISA of 7.77 cm. 3. Normal heart rate. Diagnostic code #3 This report was dictated in MDT
[2019-11-14] MEDS ORDERED: Ibuprofen 400 MG Tab PO PRN (11:57)
[2019-11-14] MEDS ORDERED: Acetaminophen 500 MG Tab PO PRN ×2 (11:57)
[2019-11-14] MEDS ORDERED: Witch Hazel Medicated Pads 40/Jar TOP PRN (11:57)
[2019-11-14] MEDS ORDERED: Lanolin 100% Cream 7 GM Tube TOP PRN (11:57)
[2019-11-14] MEDS ORDERED: oxyCODONE 5 MG Tab PO PRN (11:57)
[2019-11-14] MEDS ORDERED: Bisacodyl 10 MG Supp RECTAL PRN (11:57)
[2019-11-14] MEDS ORDERED: Benzocaine/Menthol 20%-0.5% Spray 78 GM Cannister TOP PRN (11:57)
[2019-11-14] MEDS ORDERED: Docusate Sodium 100 MG Cap PO PRN (11:57)
--- NOTE | 2019-11-14 12:05 | PCM.DEL ---
L & D Note - General Info Date of Service: 11/14/19 Mother's Due Date: 02/19/20 - Delivery Note Labor: Spontaneous Delivery Outcome: Livebirth Infant Delivery Method: Spontaneous Vaginal Delivery-Single Presentation: Left Occiput Anterior (HONEY) Nuchal Cord: None Anesthesia Type: Epidural Amniotic Fluid Description: Clear Episiotomy Type: None Laceration: 1st Degree Suture type: Vicryl Suture size: 3-0 Placenta: Intact, Spontaneous Cord: 3 Vessels Estimated Blood Loss: 200 Resuscitation Needed: Yes : Suctioned, Stimulated, Warmed, Sumava Resorts Used, Warmer Used (NICU team in room to receive baby) - General Info Date of Service: 11/14/19 Admission Dx/Problem (Free Text): Patient Status Order with Admit Dx/Problem 11/14/19 05:40 Patient Status [ADT] Routine Admission Diagnosis/Problem Admission Diagnosis/Problem Functional Status: Reports: Pain Controlled - Patient Data Weight - Most Recent: 174 lb Lab Results Last 24 Hours: Laboratory Results - last 24 hr 11/14/19 11/14/19 11/14/19 Range/Units 06:55 07:20 07:36 WBC 13.68 H (4.0-11.0) K/uL RBC 3.99 L (4.30-5.90) M/uL Hgb 11.5 L (12.0-16.0) g/dL Hct 35.8 L (36.0-46.0) % MCV 89.7 (80.0-98.0) fL MCH 28.8 (27.0-32.0) pg MCHC 32.1 (31.0-37.0) g/dL RDW Std Deviation 42.7 (28.0-62.0) fl RDW Coeff of Mikala 13 (11.0-15.0) % Plt Count 213 (150-400) K/uL MPV 10.20 (7.40-12.00) fL Neut % (Auto) 85.0 H (48.0-80.0) % Lymph % (Auto) 9.7 L (16.0-40.0) % [place] % (Auto) 4.8 (0.0-15.0) % Eos % (Auto) 0.4 (0.0-7.0) % Baso % (Auto) 0.1 (0.0-1.5) % Neut # (Auto) 11.6 H (1.4-5.7) K/uL Lymph # (Auto) 1.3 (0.6-2.4) K/uL [place] # (Auto) 0.7 (0.0-0.8) K/uL Eos # (Auto) 0.1 (0.0-0.7) K/uL Baso # (Auto) 0.0 (0.0-0.1) K/uL Nucleated RBC % 0.0 /100WBC Nucleated RBCs # 0 K/uL Membrane Rupture POSITIVE SARS-CoV-2 RNA (SHONA) NEGATIVE (NEGATIVE) Blood Type Antibody Screen 11/14/19 Range/Units 07:36 WBC (4.0-11.0) K/uL RBC (4.30-5.90) M/uL Hgb (12.0-16.0) g/dL Hct (36.0-46.0) % MCV (80.0-98.0) fL MCH (27.0-32.0) pg MCHC (31.0-37.0) g/dL RDW Std Deviation (28.0-62.0) fl RDW Coeff of Mikala (11.0-15.0) % Plt Count (150-400) K/uL MPV (7.40-12.00) fL Neut % (Auto) (48.0-80.0) % Lymph % (Auto) (16.0-40.0) % [place] % (Auto) (0.0-15.0) % Eos % (Auto) (0.0-7.0) % Baso % (Auto) (0.0-1.5) % Neut # (Auto) (1.4-5.7) K/uL Lymph # (Auto) (0.6-2.4) K/uL [place] # (Auto) (0.0-0.8) K/uL Eos # (Auto) (0.0-0.7) K/uL Baso # (Auto) (0.0-0.1) K/uL Nucleated RBC % /100WBC Nucleated RBCs # K/uL Membrane Rupture SARS-CoV-2 RNA (SHONA) (NEGATIVE) Blood Type B POSITIVE Antibody Screen NEGATIVE Med Orders - Current: Current Medications Butorphanol Tartrate (Stadol) 1 mg IVPUSH Q1H PRN PRN Reason: Pain Calcium Gluconate (Calcium Gluconate) 1 gm IV ASDIRECTED PRN PRN Reason: respiratory distress Carboprost Tromethamine (Hemabate Ds) 250 mcg IM ASDIRECTED PRN PRN Reason: Post Hemorrhage Lactated Ringer's (Ringers, Lactated) 1,000 mls @ 150 mls/hr IV ASDIRECTED [facility] Last Admin: 11/14/19 09:47 Dose: 500 mls/hr Documented by: Magnesium Sulfate (Magnesium Sulfate In Water Premix) 20 gm in 500 mls @ 50 mls/hr IV ASDIRECTED [facility] Last Infusion: 11/14/19 11:46 Dose: 0 gm/hr, 0 mls/hr Documented by: Oxytocin/Sodium Chloride (Oxytocin 30 Unit/500 Ml-Ns) 30 unit in 500 mls @ 999 mls/hr IV TITRATE [facility] Last Admin: 11/14/19 11:39 Dose: 999 mls/hr Documented by: Tranexamic Acid 1,000 mg/ (Sodium Chloride) 110 mls @ 660 mls/hr IV ONETIME PRN PRN Reason: Bleeding Lidocaine HCl (Xylocaine 1%) 50 ml INJECT ONETIME PRN PRN Reason: Laceration repair Methylergonovine Maleate (Methergine) 0.2 mg IM ASDIRECTED PRN PRN Reason: Post Hemorrhage Misoprostol (Cytotec) 200 mcg PO ONETIME PRN PRN Reason: Post Hemorrhage Sodium Chloride (Saline Flush) 10 ml FLUSH ASDIRECTED PRN PRN Reason: Keep Vein Open Sodium Chloride (Saline Flush) 2.5 ml FLUSH ASDIRECTED PRN PRN Reason: Keep Vein Open Sodium Chloride (Normal Saline) 10 ml IV ASDIRECTED PRN PRN Reason: IV Use Sterile Water (Sterile Water For Irrigation) 1,000 ml IRR ASDIRECTED PRN PRN Reason: delivery Last Admin: 11/14/19 11:46 Dose: 1,000 ml Documented by: Discontinued Medications Betamethasone Acet/Betameth SodPhos (Celestone Soluspan 6 Mg/Ml) 12 mg IM ONETIME ONE Stop: 11/14/19 07:05 Last Admin: 11/14/19 07:29 Dose: 2 ml Documented by: Betamethasone Acet/Betameth SodPhos (Celestone Soluspan 6 Mg/Ml) Confirm Administered Dose 30 mg .ROUTE .STK-MED ONE Stop: 11/14/19 07:22 Ephedrine Sulfate (Ephedrine Sulfate) Confirm Administered Dose 50 mg .ROUTE .STK-MED ONE Stop: 11/14/19 09:52 Ampicillin Sodium 2 gm/ Sodium (Chloride) 100 mls @ 200 mls/hr IV ONETIME ONE Stop: 11/14/19 07:34 Last Admin: 11/14/19 07:53 Dose: 200 mls/hr Documented by: Magnesium Sulfate 4 gm/ Premix 100 mls @ 300 mls/hr IV BOLUS ONE Stop: 11/14/19 07:30 Last Admin: 11/14/19 07:34 Dose: 300 mls/hr Documented by: Oxytocin/Sodium Chloride (Oxytocin 30 Unit/500 Ml-Ns) Confirm Administered Dose 30 unit in 500 mls @ as directed .ROUTE .STK-MED ONE Stop: 11/14/19 07:22 Magnesium Sulfate (Magnesium Sulfate In Water Premix) Confirm Administered Dose 100 mls @ as directed .ROUTE .STK-MED ONE Stop: 11/14/19 07:23 Ropivacaine (Naropin 0.2%) Confirm Administered Dose 100 mls @ as directed .ROUTE .STK-MED ONE Stop: 11/14/19 09:29 Indomethacin (Indocin) 100 mg PO ONETIME ONE Stop: 11/14/19 07:12 Last Admin: 11/14/19 07:49 Dose: 100 mg Documented by: Terbutaline Sulfate (Brethine) 0.25 mg SUBCUT ONETIME ONE Stop: 11/14/19 08:55 Last Admin: 11/14/19 09:06 Dose: 0.25 mg Documented by: Terbutaline Sulfate (Brethine) Confirm Administered Dose 1 mg .ROUTE .STK-MED ONE Stop: 11/14/19 08:58 - Problem List Review Problem List Initiated/Reviewed/Updated: Yes - My Orders Last 24 Hours: My Active Orders 11/14/19 11:57 Patient Status [ADT] Routine May Shower [RC] ASDIRECTED Up ad Marielos [RC] ASDIRECTED Vital Signs [RC] PER UNIT ROUTINE Acetaminophen [Tylenol Extra Strength] 1,000 mg PO Q4H PRN Acetaminophen [Tylenol Extra Strength] 500 mg PO Q4H PRN Benzocaine/Menthol [Dermoplast Pain Relief 20%-0.5% [place]] 78 gm TOP ASDIRECTED PRN Docusate Sodium [Colace] 100 mg PO BID PRN Ibuprofen [Motrin] 400 mg PO Q4H PRN Ibuprofen [Motrin] 800 mg PO Q6H PRN Lanolin [Lansinoh HPA] See Dose Instructions TOP ASDIRECTED PRN bisacodyL [Dulcolax] 10 mg RECTAL ONETIME PRN oxyCODONE 5 mg PO Q2H PRN witch Damian [Tucks] 1 pad TOP ASDIRECTED PRN Assess Lochia [WOMSER] Per Unit Routine Assess Uterine Involution [WOMSER] Per Unit Routine Peripheral IV Discontinue [OM.PC] Routine 11/15/19 05:11 HEMOGLOBIN/HEMATOCRIT,HH [HEME] Timed - Plan Plan:: 24yo @26w1d presenting with labor. Routine cares * Rh positive, rubella immune * GBS unknown, patient received IV Ampicillin upon arrival to [facility] * Hgb 11.5 this AM - EBL 200cc - s/p Terbutaline and Indomethacin, will monitor bleeding closely * Diet as tolerated * Encourage ambulation and fluid intake after epidural wears off History of cervical insufficiency * Recommend early cerclage or progesterone in subsequent Dispo: stable. Anticipate routine course.
--- NOTE | 2019-11-14 16:07 | OR ---
SURGEON: MAURA WALTON MD DATE OF PROCEDURE: 11/14/2019 PREOPERATIVE DIAGNOSES: 1. 26 weeks and 1 day's intrauterine . 2. labor. 3. Premature rupture of membranes. 4. History of cervical insufficiency. POSTOPERATIVE DIAGNOSES: 1. 26 weeks and 1 day's intrauterine . 2. labor. 3. Premature rupture of membranes. 4. History of cervical insufficiency. PROCEDURES: 1. Cerclage removal. 2. Spontaneous vaginal delivery. 3. First-degree midline laceration repair. PRIMARY SURGEON: Maura Walton MD ESTIMATED BLOOD LOSS: 200 mL. ANESTHESIA: Epidural. COMPLICATIONS: Unknown. FINDINGS: Viable male . 's weight is 840 g. APGARs 6 and 8 at 1 minute and 5 minutes respectively. Spontaneous delivery, intact placenta, 3-vessel cord, to pathology for further analysis. DISPOSITION: intubated by [facility] team. Plan to transfer to [place], [place], once stable. Mom in Labor and Delivery room, stable. PROCEDURE DETAILS: Teri is a 24-year-old, 2, para 0-0-1-0, at 26-1/7 weeks' gestation. has been complicated by cervical insufficiency and cerclage placement at approximately 19 weeks and 2 days. The patient presented to Labor and Delivery early this morning with abdominal pain and contractions. Upon admission to Labor and Delivery, she was noted to be 4 to 5 cm with a bulging bag. The patient was then admitted and medications were administered including 1 dose of betamethasone, IV ampicillin, IV magnesium sulfate, and indomethacin. After a few hours, the patient's cervix changed to 5, 100, and 0 station and decision made to not transfer the patient due to continued contractions and cervical dilation. The [facility] flight team was then called and notified of the patient's status. The patient's cervix was checked once again at approximately 9 a.m. and cervix was found to be 7 cm dilated, 100% effaced, and +1 station with cerclage palpated. The [facility] flight team arrived to Labor and Delivery at approximately 10:45. They were able to set up proper equipment in the nursery and also within the patient's delivery room. In the meantime, the patient received an epidural for pain management. At approximately 11:10, discussion was had with the patient and significant other for removal of the cerclage and rupture of a forebag that had palpated. A large curved Kelly was the used to remove the cerclage without difficulty. The patient tolerated the procedure well. AROM of forebag was performed with clear fluid noted. The patient started her pushing efforts and a viable male was then delivered at 11:38. Placenta delivered intact at 11:42 and was sent to pathology. Arterial, venous, and cord gases were obtained. A small first-degree laceration of the hymen was noted and repaired with 3-0 Vicryl. The cervix and vaginal ortiz were also inspected and noted to be intact. Baby was intubated in the room and transferred to the nursery with plan to transfer baby to NICU in [place], [place]. The patient tolerated the procedure well. Sponge, lap, and needle counts were correct x2. EBL was 200 mL. HUMAIRA / ROSS /[id number] BEREKET
[2019-11-14] MEDS: Ibuprofen 800 MG Tab PO PRN (16:23)
[2019-11-15] MEDS: Ibuprofen 800 MG Tab PO PRN (08:03)
--- NOTE | 2019-11-15 08:09 | PCM.PNPP ---
- General Info Date of Service: 11/15/19 Subjective Update: Patient reports she is doing well. Minimal bleeding. Mood better than she was anticipating. Functional Status: Reports: Pain Controlled, Tolerating Diet, Ambulating, Urinating - Review of Systems General: Reports: No Symptoms HEENT: Reports: No Symptoms Pulmonary: Reports: No Symptoms Cardiovascular: Reports: No Symptoms Gastrointestinal: Reports: No Symptoms Genitourinary: Reports: No Symptoms Musculoskeletal: Reports: No Symptoms Skin: Reports: No Symptoms Neurological: Reports: No Symptoms Psychiatric: Reports: No Symptoms - Patient Data Vital Signs - Most Recent: Last Vital Signs Temp 36.3 C 11/15/19 04:32 Pulse 88 11/15/19 04:32 Resp 14 11/15/19 04:32 BP 108/55 L 11/15/19 04:32 Pulse Ox 97 11/15/19 04:32 Weight - Most Recent: 170 kg Lab Results - Last 24 Hours: Laboratory Results - last 24 hr 11/14/19 11/14/19 11/14/19 Range/Units 07:20 07:36 11:39 Hgb (12.0-16.0) g/dL Hct (36.0-46.0) % Cord ABG pH 7.393 H (7.18-7.38) Cord ABG Base Excess -5 (-10--2) Cord VBG pH 7.444 (7.25-7.45) Cord VBG Base Excess -5 (-10--2) SARS-CoV-2 RNA (SHONA) NEGATIVE (NEGATIVE) Blood Type B POSITIVE Antibody Screen NEGATIVE 11/15/19 Range/Units 05:01 Hgb 10.4 L (12.0-16.0) g/dL Hct 32.8 L (36.0-46.0) % Cord ABG pH (7.18-7.38) Cord ABG Base Excess (-10--2) Cord VBG pH (7.25-7.45) Cord VBG Base Excess (-10--2) SARS-CoV-2 RNA (SHONA) (NEGATIVE) Blood Type Antibody Screen Med Orders - Current: Current Medications Acetaminophen (Tylenol Extra Strength) 500 mg PO Q4H PRN PRN Reason: Pain Acetaminophen (Tylenol Extra Strength) 1,000 mg PO Q4H PRN PRN Reason: Pain Benzocaine/Menthol (Dermoplast Pain Relief 20%-0.5% [place]) 78 gm TOP ASDIRECTED PRN PRN Reason: Perineal Comfort Measure Last Admin: 11/14/19 16:22 Dose: 1 canister Documented by: Bisacodyl (Dulcolax) 10 mg RECTAL ONETIME PRN PRN Reason: Constipation Docusate Sodium (Colace) 100 mg PO BID PRN PRN Reason: Constipation Emollient Ointment (Lansinoh Hpa) 0 gm TOP ASDIRECTED PRN PRN Reason: Sore Nipples Last Admin: 11/15/19 08:04 Dose: 7 g Documented by: Lactated Ringer's (Ringers, Lactated) 1,000 mls @ 150 mls/hr IV ASDIRECTED MARINE Last Admin: 11/14/19 09:47 Dose: 500 mls/hr Documented by: Ibuprofen (Motrin) 400 mg PO Q4H PRN PRN Reason: Pain Ibuprofen (Motrin) 800 mg PO Q6H PRN PRN Reason: Pain Last Admin: 11/15/19 08:03 Dose: 800 mg Documented by: Oxycodone HCl (Oxycodone) 5 mg PO Q2H PRN PRN Reason: Pain Sodium Chloride (Saline Flush) 10 ml FLUSH ASDIRECTED PRN PRN Reason: Keep Vein Open Sodium Chloride (Saline Flush) 2.5 ml FLUSH ASDIRECTED PRN PRN Reason: Keep Vein Open Sodium Chloride (Normal Saline) 10 ml IV ASDIRECTED PRN PRN Reason: IV Use Witch Ella (Tucks) 1 pad TOP ASDIRECTED PRN PRN Reason: comfort care Last Admin: 11/14/19 16:21 Dose: 1 pad Documented by: Discontinued Medications Betamethasone Acet/Betameth SodPhos (Celestone Soluspan 6 Mg/Ml) 12 mg IM ONETIME ONE Stop: 11/14/19 07:05 Last Admin: 11/14/19 07:29 Dose: 2 ml Documented by: Betamethasone Acet/Betameth SodPhos (Celestone Soluspan 6 Mg/Ml) Confirm Administered Dose 30 mg .ROUTE .STK-MED ONE Stop: 11/14/19 07:22 Butorphanol Tartrate (Stadol) 1 mg IVPUSH Q1H PRN PRN Reason: Pain Calcium Gluconate (Calcium Gluconate) 1 gm IV ASDIRECTED PRN PRN Reason: respiratory distress Carboprost Tromethamine (Hemabate Ds) 250 mcg IM ASDIRECTED PRN PRN Reason: Post Hemorrhage Ephedrine Sulfate (Ephedrine Sulfate) Confirm Administered Dose 50 mg .ROUTE .STK-MED ONE Stop: 11/14/19 09:52 Ampicillin Sodium 2 gm/ Sodium (Chloride) 100 mls @ 200 mls/hr IV ONETIME ONE Stop: 11/14/19 07:34 Last Admin: 11/14/19 07:53 Dose: 200 mls/hr Documented by: Magnesium Sulfate 4 gm/ Premix 100 mls @ 300 mls/hr IV BOLUS ONE Stop: 11/14/19 07:30 Last Admin: 11/14/19 07:34 Dose: 300 mls/hr Documented by: Magnesium Sulfate (Magnesium Sulfate In Water Premix) 20 gm in 500 mls @ 50 mls/hr IV ASDIRECTED [facility] Last Infusion: 11/14/19 11:46 Dose: 0 gm/hr, 0 mls/hr Documented by: Oxytocin/Sodium Chloride (Oxytocin 30 Unit/500 Ml-Ns) Confirm Administered Dose 30 unit in 500 mls @ as directed .ROUTE .STK-MED ONE Stop: 11/14/19 07:22 Last Admin: 11/14/19 13:54 Dose: Not Given Documented by: Magnesium Sulfate (Magnesium Sulfate In Water Premix) Confirm Administered Dose 100 mls @ as directed .ROUTE .STK-MED ONE Stop: 11/14/19 07:23 Last Admin: 11/14/19 13:54 Dose: Not Given Documented by: Oxytocin/Sodium Chloride (Oxytocin 30 Unit/500 Ml-Ns) 30 unit in 500 mls @ 999 mls/hr IV TITRATE [facility] Last Admin: 11/14/19 11:39 Dose: 999 mls/hr Documented by: Tranexamic Acid 1,000 mg/ (Sodium Chloride) 110 mls @ 660 mls/hr IV ONETIME PRN PRN Reason: Bleeding Ropivacaine (Naropin 0.2%) Confirm Administered Dose 100 mls @ as directed .ROUTE .STK-MED ONE Stop: 11/14/19 09:29 Indomethacin (Indocin) 100 mg PO ONETIME ONE Stop: 11/14/19 07:12 Last Admin: 11/14/19 07:49 Dose: 100 mg Documented by: Lidocaine HCl (Xylocaine 1%) 50 ml INJECT ONETIME PRN PRN Reason: Laceration repair Methylergonovine Maleate (Methergine) 0.2 mg IM ASDIRECTED PRN PRN Reason: Post Hemorrhage Misoprostol (Cytotec) 200 mcg PO ONETIME PRN PRN Reason: Post Hemorrhage Sterile Water (Sterile Water For Irrigation) 1,000 ml IRR ASDIRECTED PRN PRN Reason: delivery Last Admin: 11/14/19 11:46 Dose: 1,000 ml Documented by: Terbutaline Sulfate (Brethine) 0.25 mg SUBCUT ONETIME ONE Stop: 11/14/19 08:55 Last Admin: 11/14/19 09:06 Dose: 0.25 mg Documented by: Terbutaline Sulfate (Brethine) Confirm Administered Dose 1 mg .ROUTE .STK-MED ONE Stop: 11/14/19 08:58 Last Admin: 11/14/19 13:55 Dose: Not Given Documented by: - Infant Interaction Infant Disposition, : transferred to [place] Interaction: Unable to Hold at this Time Support Person: - Recovery Exam Fundal Tone: Firm Fundal Level: 2 Fingerbreadths Below Umbilicus Fundal Placement: Midline Lochia Amount: Scant Bladder Status: Voiding - Exam General: Alert, Oriented Neck: Supple Lungs: Normal Respiratory Effort GI/Abdominal Exam: Soft, Non-Tender Extremities: No Pedal Edema Skin: Warm, Dry, Intact Neurological: No New Focal Deficit Psy/Mental Status: Alert, Normal Affect, Normal Mood - Problem List & Annotations (1) labor with delivery in second trimester SNOMED Code(s): 77774411887914336 Code(s): O60.12X0 - LABOR SECOND TRI W DELIVERY SECOND TRI, UNSP Status: Acute Current Visit: Yes Qualifiers: Fetus number: single or unspecified fetus Qualified Code(s): O60.12X0 - labor second trimester with delivery second trimester, not applicable or unspecified - Problem List Review Problem List Initiated/Reviewed/Updated: Yes - My Orders Last 24 Hours: My Active Orders 11/15/19 08:06 Ready for Discharge [RC] PER UNIT ROUTINE - Assessment Assessment:: 24yo s/p at 26w1d, PPD#1 - Plan Plan:: Discharge patient today so she can travel to [place] where baby is in NICU. Reviewed discharge precautions. Reviewed she will have days where she is very overwhelmed with baby in NICU, and that is okay. She is to notify clinic if her mood is worsening. Reviewed baby will have days where he progresses and at times will regress, that is normal and expected at this gestational age. Will have patient follow-up with televisits for mood and health checks.
--- NOTE | 2019-11-15 08:32 | PCM48HPAN ---
Post Anesthesia Note - EVALUATION WITHIN 48HRS OF ANESTHETIC Vital Signs in Normal Range: Yes Patient Participated in Evaluation: Yes Respiratory Function Stable: Yes Airway Patent: Yes Cardiovascular Function Stable: Yes Hydration Status Stable: Yes Pain Control Satisfactory: Yes Nausea and Vomiting Control Satisfactory: Yes Mental Status Recovered: Yes Vital Signs: Last Vital Signs Temp 36.3 C 11/15/19 04:32 Pulse 88 11/15/19 04:32 Resp 14 11/15/19 04:32 BP 108/55 L 11/15/19 04:32 Pulse Ox 97 11/15/19 04:32 - COMMENTS/OBSERVATIONS Free Text/Narrative:: Doing well. No problems post.
== END 2019-11-15 09:25 | disposition home or self-care (01) | DRG 805 ==
LOC: MW.OBCHECK 05:31 → MW.OB 05:42 → MW.OBCHECK 07:34 → MW.OB 07:35 → OBSVTOIN 11:57 → MW.OB 17:23
PROVIDERS: ADMIT Obstetrics & Gynecology; ATTEND Obstetrics & Gynecology
PROC: 10E0XZZ Delivery of Products of Conception, External Approach (ICD-10-PCS; principal; 2019-11-14)
PROC: 10907ZC Drainage of Amniotic Fluid, Therapeutic from Products of Conception, Via Natural or Artificial Opening (ICD-10-PCS; 2019-11-14)
PROC: 0HQ9XZZ Repair Perineum Skin, External Approach (ICD-10-PCS; 2019-11-14)
PROC: 3E0R3BZ Introduction of Anesthetic Agent into Spinal Canal, Percutaneous Approach (ICD-10-PCS; 2019-11-14)
PROC: 00HU33Z Insertion of Infusion Device into Spinal Canal, Percutaneous Approach (ICD-10-PCS; 2019-11-14)
PROC: 10907ZC Drainage of Amniotic Fluid, Therapeutic from Products of Conception, Via Natural or Artificial Opening (ICD-10-PCS; 2019-11-14)
DX: O60.12X0 Preterm labor second trimester with preterm delivery second trimester, not applicable or unspecified (principal); O34.32 Maternal care for cervical incompetence, second trimester; Z37.0 Single live birth; Z3A.26 26 weeks gestation of pregnancy; O70.0 First degree perineal laceration during delivery; Z20.828 Contact with and (suspected) exposure to other viral communicable diseases
CPT/HCPCS: 01967; 36415; 51702; 59025; 59409; 76815; 76815-26; 82803; 84112; 85014; 85018; 85025; 86592; 86850; 86900; 86901; 88307; A9270-GY; J0290; J0702; J2590; J3105; J3475; J7050; J7120; U0002

== ENCOUNTER → 2020-03-12 | Day surgery (SDC) | payer MEDICAID ==
[~2020-03-12] MED LIST: Acetaminophen 500 MG Tab PO PRN; Lactated Ringers 1,000 ML IV SCH; Phenylephrine 1% 10 MG/ML SDV ONE
--- NOTE | 2020-03-12 07:38 | PCM.PREANE ---
Preanesthetic Assessment - Anesthesia/Transfusion/Family Hx Anesthesia History: Prior Anesthesia Without Reaction Family History of Anesthesia Reaction: No Transfusion History: No Prior Transfusion(s) Intubation History: Unknown - Review of Systems General: No Symptoms Pulmonary: No Symptoms Cardiovascular: No Symptoms Gastrointestinal: No Symptoms Neurological: No Symptoms Other: Reports: None - Physical Assessment Height: 5 ft 3 in Weight: 83.915 kg ASA Class: 2 Mental Status: Alert & Oriented x3 Airway Class: Mallampati = 2 Dentition: Reports: Normal Dentition Thyro-Mental Finger Breadths: 3 Mouth Opening Finger Breadths: 3 ROM/Head Extension: Full Lungs: Clear to Auscultation, Normal Respiratory Effort Cardiovascular: Regular Rate, Regular Rhythm - Allergies Allergies/Adverse Reactions: Allergies Allergy/AdvReac Type Severity Reaction Status Date / Time No Known Allergies Allergy Verified 03/12/20 07:34 - Blood Blood Available: No - Anesthesia Plan Pre-Op Medication Ordered: None - Acknowledgements Anesthesia Type Planned: Spinal (saddle block) Pt an Appropriate Candidate for the Planned Anesthesia: Yes Alternatives and Risks of Anesthesia Discussed w Pt/Guardian: Yes Pt/Guardian Understands and Agrees with Anesthesia Plan: Yes PreAnesthesia Questionnaire HEENT History: Reports: Other (See Below) Other HEENT History: wears glasses/contacts Cardiovascular History: Reports: None Respiratory History: Reports: Asthma (mild) Gastrointestinal History: Reports: Other (See Below) Other Gastrointestinal History: occasional heartburn with Genitourinary History: Reports: Pyelonephritis EMAIL ADMINISTRATOR History: Reports: , Spontaneous Other OB/BYN History: cervical insufficiency Musculoskeletal History: Reports: Back Pain, Chronic, Other (See Below) Other Musculoskeletal History: "possible fibromyalgia, not diagnosed" Neurological History: Reports: None Psychiatric History: Reports: Anxiety, Depression, Eating Disorders, PTSD, Suicide Attempt, Other (See Below) Other Psychiatric History: Borderline personality disorder Endocrine/Metabolic History: Reports: Obesity/BMI 30+ (BMI 32.8) Hematologic History: Reports: Anemia Immunologic History: Reports: None Oncologic (Cancer) History: Reports: None Dermatologic History: Reports: Eczema - Infectious Disease History Infectious Disease History: Reports: None - Past Surgical History Head Surgeries/Procedures: Reports: None HEENT Surgical History: Reports: None Cardiovascular Surgical History: Reports: None Respiratory Surgical History: Reports: None GI Surgical History: Reports: None Female Surgical History: Reports: Other (See Below) Other Female Surgeries/Procedures: hx cervical cerclage 10/12 Endocrine Surgical History: Reports: None Neurological Surgical History: Reports: None Musculoskeletal Surgical History: Reports: None Oncologic Surgical History: Reports: None Dermatological Surgical History: Reports: None - SUBSTANCE USE Tobacco Use Status *Q: Former Tobacco User (quit 07/12) Tobacco Use Within Last Twelve Months: Vaping Recreational Drug Type: Reports: Marijuana/Hashish Recreational Drug Last Use: quit smoking marijuana 3 weeks ago - HOME MEDS Home Medications: Home Meds Albuterol Sulfate [Albuterol Sulfate Hfa] 1 - 2 puff INH ASDIRECTED PRN 03/08/20 [History] Ondansetron [Zofran] 4 mg PO ASDIRECTED PRN 03/08/20 [History] Sertraline HCl 100 mg PO DAILY 03/08/20 [History] busPIRone [Buspar] 10 mg PO BID 03/08/20 [History] traZODone HCl [Trazodone HCl] 50 mg PO BEDTIME 03/08/20 [History] - CURRENT (IN HOUSE) MEDS Current Meds: Current Medications Lactated Ringer's (Ringers, Lactated) 1,000 mls @ 125 mls/hr IV ASDIRECTED MARINE Last Admin: 03/12/20 07:33 Dose: 125 mls/hr Documented by: Discontinued Medications Phenylephrine HCl (Mike-Synephrine) Confirm Administered Dose 10 mg .ROUTE .STK- MED ONE Stop: 03/12/20 07:01
--- NOTE | 2020-03-12 08:57 | PCM.OPNOTE ---
- General Post-Op/Procedure Note Date of Surgery/Procedure: 03/12/20 Operative Procedure(s): Cervical cerclage placement Findings: Cervix anterior, soft, external os appears dilated 1cm, length 2-3cm heart rate 160s prior to procedure Pre Op Diagnosis: 24yo at 14w1d. History of cervical insufficiency in second trimester with cerclage placement. History of labor with delivery in second trimester Post-Op Diagnosis: Same Anesthesia Technique: Spinal Primary Surgeon: Eunice Rudd Anesthesia Provider: Alfreda Duke Design Consultant: Real Houston Fluid Replacement, Intraop: 1,500 EBL in mLs: 25 Complications: None Condition: Good
--- NOTE | 2020-03-12 09:10 | PCM.POSTAN ---
POST ANESTHESIA ASSESSMENT - MENTAL STATUS Mental Status: Alert, Oriented - VITAL SIGNS Vital Signs: Last Vital Signs Temp 36.6 C 03/12/20 08:44 Pulse 70 03/12/20 08:59 Resp 15 03/12/20 08:59 BP 98/54 L 03/12/20 08:59 Pulse Ox 100 03/12/20 08:59 - RESPIRATORY Respiratory Status: Respiratory Rate WNL, Airway Patent, O2 Saturation Stable - CARDIOVASCULAR CV Status: Pulse Rate WNL, Blood Pressure Stable - GASTROINTESTINAL GI Status: No Symptoms - PAIN Pain Score: 0 - POST OP HYDRATION Hydration Status: Adequate & Stable - OBSERVATIONS Free Text/Narrative:: No anesthesia problems
--- NOTE | 2020-03-12 12:54 | PCM48HPAN ---
Post Anesthesia Note - EVALUATION WITHIN 48HRS OF ANESTHETIC Vital Signs in Normal Range: Yes Patient Participated in Evaluation: Yes Respiratory Function Stable: Yes Airway Patent: Yes Cardiovascular Function Stable: Yes Hydration Status Stable: Yes Pain Control Satisfactory: Yes Nausea and Vomiting Control Satisfactory: Yes Mental Status Recovered: Yes Vital Signs: Last Vital Signs Temp 36.6 C 03/12/20 08:44 Pulse 70 03/12/20 08:59 Resp 15 03/12/20 08:59 BP 98/54 L 03/12/20 08:59 Pulse Ox 100 03/12/20 08:59 - COMMENTS/OBSERVATIONS Free Text/Narrative:: No anesthesia problems
--- NOTE | 2020-03-13 04:27 | OR ---
SURGEON: Eunice Rudd MD DATE OF PROCEDURE: 03/12/2020 PREOPERATIVE DIAGNOSES: 1. 24-year-old, G3, P0-1-1-1 at 14 weeks and 1 day gestation. 2. History of cervical insufficiency in 2nd trimester, cerclage placement. 3. History of labor with delivery in 2nd trimester. POSTOPERATIVE DIAGNOSES: 1. 24-year-old, G3, P0-1-1-1 at 14 weeks and 1 day gestation. 2. History of cervical insufficiency in 2nd trimester, cerclage placement. 3. History of labor with delivery in 2nd trimester. PROCEDURE: Cervical cerclage placement. PRIMARY SURGEON: Eunice Rudd MD. ANESTHESIA: Spinal by Dr. Duke. AGRICULTURAL PRODUCTION ENGINEER: Dr. Real Houston. IV FLUIDS: 1500 mL. ESTIMATED BLOOD LOSS: 25 mL. FINDINGS: Cervix anterior, soft, with external os appearing dilated 1 cm, length 2 to 3 cm. heart rate 160s prior to procedure and in the recovery room. INDICATIONS: This is a 24-year-old, G3, P0-1-1-1 with a history of cervical insufficiency at 19 weeks in a prior with a rescue cerclage placement. She subsequently had a 26-week delivery after going into labor. The patient presented at 14 weeks gestation for a prophylactic or history-indicated cerclage. Risks and benefits were reviewed with the patient prior to surgery. DESCRIPTION OF PROCEDURE: The patient was taken the operating room where spinal anesthesia was obtained with moderate difficulty as the patient fainted during the 1st attempt. After vital signs and patient's status recovering, a subsequent attempt at spinal was successful. She was placed in dorsal lithotomy position with legs in Yellofin stirrups. She was prepared and draped in normal sterile fashion. Bladder was drained. Weighted speculum was inserted into the vagina and the cervix was grasped carefully with ring forceps. A pursestring suture of 0 Prolene was placed into the cervix. A second stitch of the same suture was placed at the vesicocervical junction. The distal and then proximal sutures were tied. The cervix appears to be closed and is roughly 2 to 3 cm in length postoperatively. The patient tolerated the procedure well. All instruments removed from her vagina. She will receive Indocin for tocolysis. [id number] / MODL /[id number] BEREKET
--- NOTE | 2020-03-13 10:52 | OR ---
See other dictation report. [id number] / MODL /[id number] MTDD
== END | disposition home or self-care (01) ==
LOC: MW.SDS 06:55
PROVIDERS: ATTEND Obstetrics & Gynecology
DX: N88.3 Incompetence of cervix uteri (principal); O09.211 Supervision of pregnancy with history of pre-term labor, first trimester; Z3A.14 14 weeks gestation of pregnancy; Z88.3 Allergy status to other anti-infective agents; J45.909 Unspecified asthma, uncomplicated; E66.9 Obesity, unspecified; Z68.32 Body mass index [BMI] 32.0-32.9, adult; Z79.899 Other long term (current) drug therapy
CPT/HCPCS: 59320; J2370; J7120; 00948

== ENCOUNTER 2020-08-24 21:20 | Inpatient (IN) | payer MEDICAID ==
[2020-08-24] MEDS ORDERED: Sodium Chloride 0.9% 100 ML ONE (21:41)
[2020-08-24] MEDS ORDERED: Ampicillin 2 GM Vial ONE (21:41)
[2020-08-24] MEDS ORDERED: Oxytocin/0.9 % Sodium Chloride 30 UNIT/500 ML BAG IV SCH (21:45)
[2020-08-24] MEDS ORDERED: Misoprostol 200 MCG Tab PO PRN (21:45)
[2020-08-24] MEDS ORDERED: Carboprost Tromethamine 250 MCG/1 ML Amp IM PRN (21:45)
[2020-08-24] MEDS ORDERED: Ondansetron 4 MG/2 ML SDV IVPUSH PRN (21:45)
[2020-08-24] MEDS ORDERED: Butorphanol 1 MG/ML SDV IVPUSH PRN (21:45)
[2020-08-24] MEDS ORDERED: Lidocaine 1% 50 ML MDV INJECT PRN (21:45)
[2020-08-24] MEDS ORDERED: Nalbuphine 10 MG/1 ML Vial IVPUSH PRN (21:45)
[2020-08-24] MEDS ORDERED: Tranexamic Acid 1,000 MG in Sodium Chloride 0.9% 100 ML IV PRN (21:45)
[2020-08-24] MEDS ORDERED: Sodium Chloride 0.9% 10 ML Syringe FLUSH PRN (21:45)
[2020-08-24] MEDS ORDERED: Sodium Chloride 0.9% 10 ML SDV IV PRN (21:45)
[2020-08-24] MEDS ORDERED: Methylergonovine 0.2 MG/1 ML Amp IM PRN (21:45)
[2020-08-24] MEDS ORDERED: Water For Irrigation,Sterile 1,000 ML Container IRR PRN (21:45)
[2020-08-24] MEDS ORDERED: Sodium Chloride 0.9% 2.5 ML Syringe FLUSH PRN (21:45)
[2020-08-24] MEDS ORDERED: Ampicillin 2 GM in Sodium Chloride 0.9% 100 ML IV ONE (22:00)
[2020-08-24] MEDS: Lactated Ringers 1,000 ML IV SCH ×2 (22:10→23:08)
[2020-08-24] MEDS ORDERED: Ropivacaine HCl/PF 200 ML ONE (22:33)
[2020-08-24] MEDS ORDERED: Bupivacaine 0.25% 10 ML SDV ONE (22:33)
--- NOTE | 2020-08-24 23:06 | PCM.PREANE ---
Preanesthetic Assessment - Anesthesia/Transfusion/Family Hx Anesthesia History: Prior Anesthesia Without Reaction Family History of Anesthesia Reaction: No Transfusion History: No Prior Transfusion(s) Intubation History: Unknown - Review of Systems General: No Symptoms Pulmonary: No Symptoms Cardiovascular: No Symptoms Gastrointestinal: No Symptoms Neurological: No Symptoms Other: Reports: None - Physical Assessment NPO Status Date: 08/24/20 NPO Status Time: 18:00 Height: 5 ft 3 in Weight: 228 lb ASA Class: 2 Airway Class: Mallampati = 2 - Lab Values: Laboratory Last Values WBC 14.87 K/uL (4.0-11.0) H 08/24/20 22:10 RBC 4.62 M/uL (4.30-5.90) 08/24/20 22:10 Hgb 10.4 g/dL (12.0-16.0) L 08/24/20 22:10 Hct 33.7 % (36.0-46.0) L 08/24/20 22:10 MCV 72.9 fL (80.0-98.0) L 08/24/20 22:10 MCH 22.5 pg (27.0-32.0) L 08/24/20 22:10 MCHC 30.9 g/dL (31.0-37.0) L 08/24/20 22:10 RDW Std Deviation 42.6 fl (28.0-62.0) 08/24/20 22:10 RDW Coeff of Mikala 16 % (11.0-15.0) H 08/24/20 22:10 Plt Count 384 K/uL (150-400) 08/24/20 22:10 MPV 10.90 fL (7.40-12.00) 08/24/20 22:10 Nucleated RBC % 0.0 /100WBC 08/24/20 22:10 Nucleated RBCs # 0 K/uL 08/24/20 22:10 - Allergies Allergies/Adverse Reactions: Allergies Allergy/AdvReac Type Severity Reaction Status Date / Time No Known Allergies Allergy Verified 03/12/20 07:34 - Blood Blood Available: Yes Product(s) Available: PRBC - Anesthesia Plan Pre-Op Medication Ordered: None - Acknowledgements Anesthesia Type Planned: Epidural Pt an Appropriate Candidate for the Planned Anesthesia: Yes Alternatives and Risks of Anesthesia Discussed w Pt/Guardian: Yes Pt/Guardian Understands and Agrees with Anesthesia Plan: Yes PreAnesthesia Questionnaire HEENT History: Reports: Other (See Below) Other HEENT History: wears glasses/contacts Cardiovascular History: Reports: None Respiratory History: Reports: Asthma (mild) Gastrointestinal History: Reports: Other (See Below) Other Gastrointestinal History: occasional heartburn with Genitourinary History: Reports: Pyelonephritis [employer] History: Reports: , Spontaneous Other OB/BYN History: cervical insufficiency Musculoskeletal History: Reports: Back Pain, Chronic, Other (See Below) Other Musculoskeletal History: "possible fibromyalgia, not diagnosed" Neurological History: Reports: None Psychiatric History: Reports: Anxiety, Depression, Eating Disorders, PTSD, Suicide Attempt, Other (See Below) Other Psychiatric History: Borderline personality disorder Endocrine/Metabolic History: Reports: Obesity/BMI 30+ (BMI 32.8) Hematologic History: Reports: Anemia Immunologic History: Reports: None Oncologic (Cancer) History: Reports: None Dermatologic History: Reports: Eczema - Infectious Disease History Infectious Disease History: Reports: None - Past Surgical History Head Surgeries/Procedures: Reports: None HEENT Surgical History: Reports: None Cardiovascular Surgical History: Reports: None Respiratory Surgical History: Reports: None GI Surgical History: Reports: None Female Surgical History: Reports: Other (See Below) Other Female Surgeries/Procedures: hx cervical cerclage 10/12 Endocrine Surgical History: Reports: None Neurological Surgical History: Reports: None Musculoskeletal Surgical History: Reports: None Oncologic Surgical History: Reports: None Dermatological Surgical History: Reports: None - HOME MEDS Home Medications: Home Meds Albuterol Sulfate [Albuterol Sulfate Hfa] 1 - 2 puff INH ASDIRECTED PRN 03/08/20 [History] Ondansetron [Zofran] 4 mg PO ASDIRECTED PRN 03/08/20 [History] Sertraline HCl 100 mg PO DAILY 03/08/20 [History] busPIRone [Buspar] 10 mg PO BID 03/08/20 [History] traZODone HCl [Trazodone HCl] 50 mg PO BEDTIME 03/08/20 [History] Indomethacin [Indocin] 25 mg PO Q6H 2 Days #9 cap 03/12/20 [Rx] - CURRENT (IN HOUSE) MEDS Current Meds: Current Medications Butorphanol Tartrate (Butorphanol 1 Mg/Ml Sdv) 1 mg IVPUSH Q1H PRN PRN Reason: Pain (severe 7-10) Carboprost Tromethamine (Carboprost Tromethamine 250 Mcg/1 Ml Amp) 250 mcg IM ASDIRECTED PRN PRN Reason: Post Hemorrhage Lactated Ringer's (Ringers, Lactated) 1,000 mls @ 150 mls/hr IV ASDIRECTED [facility] Oxytocin/Sodium Chloride (Oxytocin 30 Unit/500 Ml-Ns) 30 unit in 500 mls @ 999 mls/hr IV TITRATE [facility] Tranexamic Acid 1,000 mg/ (Sodium Chloride) 110 mls @ 660 mls/hr IV ONETIME PRN PRN Reason: Bleeding Lidocaine HCl (Lidocaine 1% 50 Ml Mdv) 50 ml INJECT ONETIME PRN PRN Reason: Laceration repair Methylergonovine Maleate (Methylergonovine 0.2 Mg/1 Ml Amp) 0.2 mg IM ASDI RECTED PRN PRN Reason: Post Hemorrhage Misoprostol (Misoprostol 200 Mcg Tab) 200 mcg PO ONETIME PRN PRN Reason: Post Hemorrhage Nalbuphine HCl (Nalbuphine 10 Mg/1 Ml Vial) 10 mg IVPUSH Q1H PRN PRN Reason: Pain (severe 7-10) Ondansetron HCl (Ondansetron 4 Mg/2 Ml Sdv) 4 mg IVPUSH Q4H PRN PRN Reason: Nausea/Vomiting Sodium Chloride (Sodium Chloride 0.9% 10 Ml Syringe) 10 ml FLUSH ASDIRECTED PRN PRN Reason: Keep Vein Open Sodium Chloride (Sodium Chloride 0.9% 2.5 Ml Syringe) 2.5 ml FLUSH ASDIRECTED PRN PRN Reason: Keep Vein Open Sodium Chloride (Sodium Chloride 0.9% 10 Ml Sdv) 10 ml IV ASDIRECTED PRN PRN Reason: IV Use Sterile Water (Water For Irrigation,Sterile 1,000 Ml Container) 1,000 ml IRR ASDIRECTED PRN PRN Reason: delivery Discontinued Medications Ampicillin Sodium (Ampicillin 2 Gm Vial) Confirm Administered Dose 2 gm .ROUTE .[employer] ONE Stop: 08/24/20 21:42 Last Admin: 08/24/20 22:02 Dose: 2 gm Documented by: Bupivacaine HCl (Bupivacaine 0.25% 10 Ml Sdv) Confirm Administered Dose 10 ml .ROUTE .[employer] ONE Stop: 08/24/20 22:34 Sodium Chloride (Normal Saline) Confirm Administered Dose 100 mls @ as directed .ROUTE .[employer] ONE Stop: 08/24/20 21:42 Last Admin: 08/24/20 22:02 Dose: 200 mls/hr Documented by: Ropivacaine (Naropin 0.2%) Confirm Administered Dose 200 mls @ as directed .ROUTE .[employer] ONE Stop: 08/24/20 22:34 - Pre-Procedure Checklist Attending Provider Aware: Yes Chart Reviewed: Yes Consent Signed: Yes Labs Reviewed: Yes VS/FHR Reviewed: Yes Patient Identification Confirmation Method: Reports: Verbal Patient Pt an Appropriate Candidate for the Planned Anesthesia: Yes Alternatives and Risks of Anesthesia Discussed w Pt/Guardian: Yes - Procedure Procedure Start Date: 08/24/20 Procedure Start Time: 22:[address]: Reports: Blood Pressure, Heart Rate, SPO2 Functional IV: Yes Safety Measures: Reports: Patient Identified, Procedure Verified, Site Verified, Procedure Time Out Patient Position: Reports: Sitting Prep: Reports: Betadine x3 Local Anesthetic: Reports: Intradermal Wheal w Lidocaine 1% Regional Placement Level: Reports: L3-4 Needle: Reports: 17 g Touhy Approach: Reports: Midline Technique: Reports: CHASITY Plastic Syringe Parasthesia: Reports: None Fluid Obtained: Reports: None Test Dose Medication: Reports: Lidocaine 1.5% w Epinephrine 1:200,000 Test Dose Response: Reports: Negative Loading Dose Time: 22:45 Loading Dose Medication: bupivicaine 0.25% 10cc Loading Dose Patient Position: sitting Continuous Infusion Start Time: 22:50 Continuous Infusion Medication: ropivicaine 0.2% Continuous Infusion Rate: 16 Continuous Infusion PCS Bolus Option: 4 Continuous Infusion Lockout Dose (cc/hr): 32 Patient Position Post Placement: Reports: Supline/RAKESH Level Achieved: adequate VS and FHR Monitored in Unit Post Placement: Yes Procedure End Date: 08/24/20 Procedure End Time: 23:34
[2020-08-25] MEDS: Lactated Ringers 1,000 ML IV SCH (00:53)
[2020-08-25] MEDS: Famotidine 20 MG Tab PO SCH ×3 (00:53→20:27)
[2020-08-25] MEDS ORDERED: Ampicillin 1 GM in Sodium Chloride 0.9% 50 ML IV SCH (02:00)
[2020-08-25] MEDS ORDERED: Lanolin 100% Cream 7 GM Tube TOP PRN (04:11)
[2020-08-25] MEDS ORDERED: oxyCODONE 5 MG Tab PO PRN (04:11)
[2020-08-25] MEDS ORDERED: Bisacodyl 10 MG Supp RECTAL PRN (04:11)
[2020-08-25] MEDS ORDERED: Witch Hazel Medicated Pads 40/Jar TOP PRN (04:11)
[2020-08-25] MEDS ORDERED: Benzocaine/Menthol 20%-0.5% Spray 78 GM Cannister TOP PRN (04:11)
--- NOTE | 2020-08-25 04:17 | PCM.DEL ---
L & D Note - General Info Date of Service: 08/25/20 Mother's Due Date: 09/09/20 - Delivery Note Labor: Spontaneous Delivery Outcome: Livebirth Infant Delivery Method: Spontaneous Vaginal Delivery-Single Presentation: Vertex Nuchal Cord: Present, Reduced (after delivery of body) Anesthesia Type: Epidural Amniotic Fluid Description: Meconium Stained Episiotomy Type: None Laceration: 1st Degree, Labial (left), Periurethral Suture type: Vicryl Suture size: 3-0 Placenta: Intact, Spontaneous Cord: 3 Vessels Estimated Blood Loss: 400 Resuscitation Needed: Yes : Suctioned, Bulb Syringe, Cathether, Stimulated Score 1 min: 8 Score 5 min: 9 Delivery Comments (Free Text/Narrative):: 2 doses of Ampicillin given for GBS prophylaxis prior to rupture of membranes Male infant, weight 3280g - General Info Date of Service: 08/25/20 - Patient Data Weight - Most Recent: 103.419 kg Lab Results Last 24 Hours: Laboratory Results - last 24 hr 08/24/20 08/24/20 08/24/20 Range/Units 22:10 22:10 22:10 WBC 14.87 H (4.0-11.0) K/uL RBC 4.62 (4.30-5.90) M/uL Hgb 10.4 L (12.0-16.0) g/dL Hct 33.7 L (36.0-46.0) % MCV 72.9 L (80.0-98.0) fL MCH 22.5 L (27.0-32.0) pg MCHC 30.9 L (31.0-37.0) g/dL RDW Std Deviation 42.6 (28.0-62.0) fl RDW Coeff of Mikala 16 H (11.0-15.0) % Plt Count 384 (150-400) K/uL MPV 10.90 (7.40-12.00) fL Nucleated RBC % 0.0 /100WBC Nucleated RBCs # 0 K/uL SARS-CoV-2 RNA (SHONA) NEGATIVE (NEGATIVE) Blood Type B POSITIVE Antibody Screen NEGATIVE Med Orders - Current: Current Medications Acetaminophen (Acetaminophen 500 Mg Tab) 1,000 mg PO Q6H PRN PRN Reason: Pain (mild 1-3) Benzocaine/Menthol (Benzocaine/Menthol 20%-0.5% Merrill 78 Gm Cannister) 78 gm TOP ASDIRECTED PRN PRN Reason: Perineal Comfort Measure Bisacodyl (Bisacodyl 10 Mg Supp) 10 mg RECTAL ONETIME PRN PRN Reason: Constipation Butorphanol Tartrate (Butorphanol 1 Mg/Ml Sdv) 1 mg IVPUSH Q1H PRN PRN Reason: Pain (severe 7-10) Carboprost Tromethamine (Carboprost Tromethamine 250 Mcg/1 Ml Amp) 250 mcg IM ASDIRECTED PRN PRN Reason: Post Hemorrhage Docusate Sodium (Docusate Sodium 100 Mg Cap) 100 mg PO Q12H PRN PRN Reason: Constipation Emollient Ointment (Lanolin 100% Cream 7 Gm Tube) 0 gm TOP ASDIRECTED PRN PRN Reason: Sore Nipples Famotidine (Famotidine 20 Mg Tab) 20 mg PO BID [facility] Last Admin: 08/25/20 00:53 Dose: 20 mg Documented by: Lactated Ringer's (Ringers, Lactated) 1,000 mls @ 150 mls/hr IV ASDIRECTED [facility] Last Admin: 08/25/20 00:53 Dose: 150 mls/hr Documented by: Oxytocin/Sodium Chloride (Oxytocin 30 Unit/500 Ml-Ns) 30 unit in 500 mls @ 999 mls/hr IV TITRATE [facility] Last Admin: 08/25/20 03:35 Dose: 999 mls/hr Documented by: Tranexamic Acid 1,000 mg/ (Sodium Chloride) 110 mls @ 660 mls/hr IV ONETIME PRN PRN Reason: Bleeding Ampicillin Sodium 1 gm/ Sodium (Chloride) 50 mls @ 100 mls/hr IV Q4H [facility] Last Admin: 08/25/20 01:36 Dose: 100 mls/hr Documented by: Ibuprofen (Ibuprofen 800 Mg Tab) 800 mg PO Q8H PRN PRN Reason: Pain (mild 1-3) Lidocaine HCl (Lidocaine 1% 50 Ml Mdv) 50 ml INJECT ONETIME PRN PRN Reason: Laceration repair Methylergonovine Maleate (Methylergonovine 0.2 Mg/1 Ml Amp) 0.2 mg IM ASDIRECTED PRN PRN Reason: Post Hemorrhage Misoprostol (Misoprostol 200 Mcg Tab) 200 mcg PO ONETIME PRN PRN Reason: Post Hemorrhage Nalbuphine HCl (Nalbuphine 10 Mg/1 Ml Vial) 10 mg IVPUSH Q1H PRN PRN Reason: Pain (severe 7-10) Non-Formulary Medication (Albuterol Sulfate) 1 - 2 puff INH ASDIRECTED PRN PRN Reason: Shortness of Breath Non-Formulary Medication (Buspirone) 10 mg PO BID [facility] Ondansetron HCl (Ondansetron 4 Mg/2 Ml Sdv) 4 mg IVPUSH Q4H PRN PRN Reason: Nausea/Vomiting Last Admin: 08/25/20 01:06 Dose: 4 mg Documented by: Oxycodone HCl (Oxycodone 5 Mg Tab) 5 mg PO Q2H PRN PRN Reason: Pain (severe 7-10) Sertraline HCl (Sertraline 100 Mg Tab) 100 mg PO DAILY [facility] Sodium Chloride (Sodium Chloride 0.9% 10 Ml Syringe) 10 ml FLUSH ASDIRECTED PRN PRN Reason: Keep Vein Open Sodium Chloride (Sodium Chloride 0.9% 2.5 Ml Syringe) 2.5 ml FLUSH ASDIRECTED PRN PRN Reason: Keep Vein Open Sodium Chloride (Sodium Chloride 0.9% 10 Ml Sdv) 10 ml IV ASDIRECTED PRN PRN Reason: IV Use Sterile Water (Water For Irrigation,Sterile 1,000 Ml Container) 1,000 ml IRR ASDIRECTED PRN PRN Reason: delivery Trazodone HCl (Trazodone 50 Mg Tab) 50 mg PO BEDTIME [facility] Witch Ella (Witch Ella Medicated Pads 40/Jar) 1 pad TOP ASDIRECTED PRN PRN Reason: comfort care Discontinued Medications Ampicillin Sodium (Ampicillin 2 Gm Vial) Confirm Administered Dose 2 gm .ROUTE .[employer] ONE Stop: 08/24/20 21:42 Last Admin: 08/24/20 22:02 Dose: 2 gm Documented by: Bupivacaine HCl (Bupivacaine 0.25% 10 Ml Sdv) Confirm Administered Dose 10 ml .ROUTE .STK-[employer] ONE Stop: 08/24/20 22:34 Sodium Chloride (Normal Saline) Confirm Administered Dose 100 mls @ as directed .ROUTE .STK-[employer] ONE Stop: 08/24/20 21:42 Last Admin: 08/24/20 22:02 Dose: 200 mls/hr Documented by: Ropivacaine (Naropin 0.2%) Confirm Administered Dose 200 mls @ as directed .ROUTE .STK-MED ONE Stop: 08/24/20 22:34 - Problem List & Annotations (1) Vaginal delivery SNOMED Code(s): 318013785 Code(s): O80 - ENCOUNTER FOR FULL-TERM UNCOMPLICATED DELIVERY Status: Acute Current Visit: Yes - Problem List Review Problem List Initiated/Reviewed/Updated: Yes - My Orders Last 24 Hours: My Active Orders 08/24/20 21:45 Patient Status [ADT] Routine May Shower [RC] ASDIRECTED Notify Provider [RC] PRN Up ad Marielos [RC] ASDIRECTED Vital Signs [RC] PER UNIT ROUTINE Butorphanol [Stadol] 1 mg IVPUSH Q1H PRN Carboprost Tromethamine [Hemabate DS] 250 mcg IM ASDIRECTED PRN Lactated Ringers [Ringers, Lactated] 1,000 ml IV ASDIRECTED Lidocaine 1% [Xylocaine 1%] 50 ml INJECT ONETIME PRN Methylergonovine [Methergine] 0.2 mg IM ASDIRECTED PRN Nalbuphine [Nubain] 10 mg IVPUSH Q1H PRN Ondansetron [Zofran] 4 mg IVPUSH Q4H PRN Oxytocin/0.9 % Sodium Chloride [Oxytocin 30 Unit/500 ML-NS] 30 unit in 500 ml IV TITRATE Sodium Chloride 0.9% [Normal Saline] 10 ml IV ASDIRECTED PRN Sodium Chloride 0.9% [Saline Flush] 10 ml FLUSH ASDIRECTED PRN Sodium Chloride 0.9% [Saline Flush] 2.5 ml FLUSH ASDIRECTED PRN Tranexamic Acid [Cyklokapron] 1,000 mg Sodium Chloride 0.9% [Normal Saline] 100 ml IV ONETIME Water For Irrigation,Sterile [Sterile Water for Irrigation] 1,000 ml IRR ASDIRECTED PRN miSOPROStoL [Cytotec] 200 mcg PO ONETIME PRN Scalp Electrode [WOMSER] Per Unit Routine Peripheral IV Insertion Adult [OM.PC] Routine Resuscitation Status Routine 08/24/20 22:10 RPR (SYPHILIS SERO) W/ RFLX [REF] Routine 08/25/20 00:45 Famotidine [Pepcid] 20 mg PO BID 08/25/20 02:00 Ampicillin 1 gm Sodium Chloride 0.9% [Normal Saline] 50 ml IV Q4H 08/25/20 04:11 Patient Status [ADT] Routine Cooling Warming Measures [RC] ASDIRECTED May Shower [RC] ASDIRECTED Notify Provider Vital Signs [RC] ASDIRECTED Up ad Marielos [RC] ASDIRECTED Vital Signs [RC] PER UNIT ROUTINE Acetaminophen [Tylenol Extra Strength] 1,000 mg PO Q6H PRN Benzocaine/Menthol [Dermoplast Pain Relief 20%-0.5% Merrill] 78 gm TOP ASDIRECTED PRN Docusate Sodium [Colace] 100 mg PO Q12H PRN Ibuprofen [Motrin] 800 mg PO Q8H PRN Lanolin [Lansinoh HPA] See Dose Instructions TOP ASDIRECTED PRN bisacodyL [Dulcolax] 10 mg RECTAL ONETIME PRN oxyCODONE 5 mg PO Q2H PRN witch Ella [Tucks] 1 pad TOP ASDIRECTED PRN Assess Lochia [WOMSER] Per Unit Routine Assess Uterine Involution [WOMSER] Per Unit Routine Breast Pump [WOMSER] Per Unit Routine Ice Therapy [OM.PC] Per Unit Routine Perineal Care [OM.PC] Per Unit Routine Peripheral IV Discontinue [OM.PC] Routine Sitz Bath [OM.PC] Per Unit Routine 08/25/20 04:12 Albuterol Sulfate 1 - 2 puff INH ASDIRECTED PRN 08/25/20 Breakfast Regular Diet [DIET] 08/25/20 09:00 Sertraline [Zoloft] 100 mg PO DAILY busPIRone 10 mg PO BID 08/25/20 21:00 traZODone 50 mg PO BEDTIME 08/26/20 05:11 HEMOGLOBIN/HEMATOCRIT,HH [HEME] Timed - Assessment Assessment:: 25yo s/p at 37w6d - Plan Plan:: Admit to unit for routine care. Received adequate GBS prophylaxis.
[2020-08-25] MEDS: Docusate Sodium 100 MG Cap PO PRN ×2 (06:36→20:27)
--- NOTE | 2020-08-25 08:00 | OR ---
SURGEON: Eunice Rudd MD DATE OF PROCEDURE: 08/25/2020 PREOPERATIVE DIAGNOSES: 1. A 25-year-old 3, para 0-1-1-1, at 37 weeks and 5 days' gestation. 2. Labor. 3. Group B Streptococcus positive. 4. History of cervical incompetence, status post cerclage. 5. History of delivery, status post Pinch supplementation. POSTOPERATIVE DIAGNOSES: 1. A 25-year-old 3, para 1-1-1-2, at 37 weeks and 6 days' gestation. 2. Group B Streptococcus positive. 3. History of cervical incompetence, status post cerclage. 4. History of delivery, status post Mariposa supplementation. PROCEDURES: Spontaneous vaginal delivery and repair of perineal laceration. PRIMARY SURGEON: Eunice Rudd MD ANESTHESIA: Epidural. ESTIMATED BLOOD LOSS: 400 mL. ANTIBIOTIC PROPHYLAXIS: Ampicillin IV x2 doses. FINDINGS: A live male in a cephalic presentation. scores were 8 and 9 at 1 and 5 minutes respectively. Weight was 3280 g. Nuchal cord x1. Thick meconium fluid. Left labial, first-degree perineal, periurethral lacerations. Placenta was intact with a 3-vessel cord. INDICATIONS: This is a 25-year-old G3, P0-1-1-1, who presented at 37 weeks and 5 days' gestation complaining of contractions. She had been seen earlier in clinic and was 3 to 4 cm dilated. Upon presentation, she was found to be 5 to 6 cm dilated and alejandra every 2 to 3 minutes. She was admitted to Labor and Delivery. Ampicillin was started for GBS prophylaxis. She received an epidural for pain control. After a second dose of ampicillin 4 hours later, she underwent artificial rupture of membranes with thick meconium fluid noted. She quickly progressed to complete cervical dilation shortly thereafter. DESCRIPTION OF PROCEDURE: I arrived to the room as the patient was being diagnosed as completely cervical dilated. The 's head was at +2 station. The respiratory therapist was called per protocol for thick meconium fluid. The patient pushed for 5 contractions and delivered a live male . The head was delivered, followed by the shoulders and the remainder of the body. Nuchal cord x1 was reduced after delivery of the body. The infant was placed on the maternal abdomen. After approximately 60 seconds, the cord was clamped and cut. The placenta then delivered intact and with a 3-vessel cord. The perineum was inspected, and a left labial, first-degree perineal, and periurethral lacerations were noted. These were repaired to anatomy and hemostasis with 2-0 Vicryl for the labial and perineal lacerations and 3-0 Vicryl for the periurethral laceration. The fundus was firm below the umbilicus with scant bleeding. The patient and infant tolerated the delivery well. All sponge counts were correct. [id number] / MODL /[id number] MTDD
[2020-08-25] MEDS: Sertraline 100 MG Tab PO SCH (08:23)
[2020-08-25] MEDS: busPIRone 5 MG Tab PO SCH ×2 (08:23→20:27)
[2020-08-25] MEDS: Ibuprofen 800 MG Tab PO PRN ×2 (08:23→16:06)
--- NOTE | 2020-08-25 16:38 | PCM.POSTAN ---
POST ANESTHESIA ASSESSMENT - MENTAL STATUS Mental Status: Alert, Oriented - VITAL SIGNS Vital Signs: Last Vital Signs Temp 98.6 F 08/25/20 16:00 Pulse 81 08/25/20 16:00 Resp 16 08/25/20 16:00 BP 104/50 L 08/25/20 16:00 Pulse Ox - RESPIRATORY Respiratory Status: Respiratory Rate WNL, Airway Patent, O2 Saturation Stable - CARDIOVASCULAR CV Status: Pulse Rate WNL, Blood Pressure Stable - GASTROINTESTINAL GI Status: No Symptoms - POST OP HYDRATION Hydration Status: Adequate & Stable
--- NOTE | 2020-08-25 16:39 | PCM48HPAN ---
Post Anesthesia Note - EVALUATION WITHIN 48HRS OF ANESTHETIC Vital Signs in Normal Range: Yes Patient Participated in Evaluation: Yes Respiratory Function Stable: Yes Airway Patent: Yes Cardiovascular Function Stable: Yes Hydration Status Stable: Yes Pain Control Satisfactory: Yes Nausea and Vomiting Control Satisfactory: Yes Mental Status Recovered: Yes Vital Signs: Last Vital Signs Temp 98.6 F 08/25/20 16:00 Pulse 81 08/25/20 16:00 Resp 16 08/25/20 16:00 BP 104/50 L 08/25/20 16:00 Pulse Ox
[2020-08-25] MEDS: Acetaminophen 500 MG Tab PO PRN (20:28)
[2020-08-25] MEDS ORDERED: traZODone 50 MG Tab PO SCH (21:00)
[2020-08-26] MEDS: Ibuprofen 800 MG Tab PO PRN (04:07)
--- NOTE | 2020-08-26 08:47 | PCM.PNPP ---
- General Info Date of Service: 08/26/20 Subjective Update: Patient doing well. Overwhelmed by cluster feeding yesterday, switched to formula feeding. Functional Status: Reports: Pain Controlled, Tolerating Diet, Ambulating, Urinating - Review of Systems General: Reports: No Symptoms HEENT: Reports: No Symptoms Pulmonary: Reports: No Symptoms Cardiovascular: Reports: No Symptoms Gastrointestinal: Reports: No Symptoms Genitourinary: Reports: No Symptoms Musculoskeletal: Reports: No Symptoms Skin: Reports: No Symptoms Neurological: Reports: No Symptoms Psychiatric: Reports: No Symptoms - Patient Data Vital Signs - Most Recent: Last Vital Signs Temp 36.3 C 08/26/20 04:05 Pulse 89 08/26/20 04:05 Resp 16 08/26/20 04:05 BP 111/67 08/26/20 04:05 Pulse Ox 100 08/26/20 04:05 Weight - Most Recent: 103.419 kg Lab Results - Last 24 Hours: Laboratory Results - last 24 hr 08/26/20 Range/Units 05:18 Hgb 8.6 L (12.0-16.0) g/dL Hct 28.5 L (36.0-46.0) % Med Orders - Current: Current Medications Acetaminophen (Acetaminophen 500 Mg Tab) 1,000 mg PO Q6H PRN PRN Reason: Pain (mild 1-3) Last Admin: 08/25/20 20:28 Dose: 1,000 mg Documented by: Albuterol Sulfate (Albuterol Sulfate 8.5 Gm Hfa Inhaler) 1 - 2 gm INH ASDIRECTED PRN PRN Reason: Shortness of Breath Benzocaine/Menthol (Benzocaine/Menthol 20%-0.5% Lloyd 78 Gm Cannister) 78 gm TOP ASDIRECTED PRN PRN Reason: Perineal Comfort Measure Last Admin: 08/25/20 08:22 Dose: 1 can Documented by: Bisacodyl (Bisacodyl 10 Mg Supp) 10 mg RECTAL ONETIME PRN PRN Reason: Constipation Buspirone HCl (Buspirone 5 Mg Tab) 10 mg PO BID [facility]INE Last Admin: 08/25/20 20:27 Dose: 10 mg Documented by: Carboprost Tromethamine (Carboprost Tromethamine 250 Mcg/1 Ml Amp) 250 mcg IM ASDIRECTED PRN PRN Reason: Post Hemorrhage Docusate Sodium (Docusate Sodium 100 Mg Cap) 100 mg PO Q12H PRN PRN Reason: Constipation Last Admin: 08/25/20 20:27 Dose: 100 mg Documented by: Emollient Ointment (Lanolin 100% Cream 7 Gm Tube) 0 gm TOP ASDIRECTED PRN PRN Reason: Sore Nipples Last Admin: 08/25/20 06:35 Dose: 7 gm Documented by: Famotidine (Famotidine 20 Mg Tab) 20 mg PO BID [facility] [place] Last Admin: 08/25/20 20:27 Dose: 20 mg Documented by: Lactated Ringer's (Ringers, Lactated) 1,000 mls @ 150 mls/hr IV ASDIRECTED [facility] [place] Last Admin: 08/25/20 00:53 Dose: 150 mls/hr Documented by: Oxytocin/Sodium Chloride (Oxytocin 30 Unit/500 Ml-Ns) 30 unit in 500 mls @ 999 mls/hr IV TITRATE [facility] [place] Last Admin: 08/25/20 03:35 Dose: 999 mls/hr Documented by: Tranexamic Acid 1,000 mg/ (Sodium Chloride) 110 mls @ 660 mls/hr IV ONETIME PRN PRN Reason: Bleeding Ibuprofen (Ibuprofen 800 Mg Tab) 800 mg PO Q8H PRN PRN Reason: Pain (mild 1-3) Last Admin: 08/26/20 04:07 Dose: 800 mg Documented by: Methylergonovine Maleate (Methylergonovine 0.2 Mg/1 Ml Amp) 0.2 mg IM ASDIRECTED PRN PRN Reason: Post Hemorrhage Misoprostol (Misoprostol 200 Mcg Tab) 200 mcg PO ONETIME PRN PRN Reason: Post Hemorrhage Ondansetron HCl (Ondansetron 4 Mg/2 Ml Sdv) 4 mg IVPUSH Q4H PRN PRN Reason: Nausea/Vomiting Last Admin: 08/25/20 01:06 Dose: 4 mg Documented by: Oxycodone HCl (Oxycodone 5 Mg Tab) 5 mg PO Q2H PRN PRN Reason: Pain (severe 7-10) Sertraline HCl (Sertraline 100 Mg Tab) 100 mg PO DAILY [facility] [place] Last Admin: 08/25/20 08:23 Dose: 100 mg Documented by: Sodium Chloride (Sodium Chloride 0.9% 10 Ml Syringe) 10 ml FLUSH ASDIRECTED PRN PRN Reason: Keep Vein Open Sodium Chloride (Sodium Chloride 0.9% 2.5 Ml Syringe) 2.5 ml FLUSH ASDIRECTED PRN PRN Reason: Keep Vein Open Last Admin: 08/25/20 20:30 Dose: 2.5 ml Documented by: Sodium Chloride (Sodium Chloride 0.9% 10 Ml Sdv) 10 ml IV ASDIRECTED PRN PRN Reason: IV Use Trazodone HCl (Trazodone 50 Mg Tab) 50 mg PO BEDTIME [facility] [place] Last Admin: 08/25/20 20:27 Dose: 50 mg Documented by: Clive Jaramillo (Clive Jaramillo Medicated Pads 40/Jar) 1 pad TOP ASDIRECTED PRN PRN Reason: comfort care Last Admin: 08/25/20 08:22 Dose: 1 container Documented by: Discontinued Medications Ampicillin Sodium (Ampicillin 2 Gm Vial) Confirm Administered Dose 2 gm .ROUTE .STK-MED ONE Stop: 08/24/20 21:42 Last Admin: 08/24/20 22:02 Dose: 2 gm Documented by: Bupivacaine HCl (Bupivacaine 0.25% 10 Ml Sdv) Confirm Administered Dose 10 ml .ROUTE .STK-MED ONE Stop: 08/24/20 22:34 Butorphanol Tartrate (Butorphanol 1 Mg/Ml Sdv) 1 mg IVPUSH Q1H PRN PRN Reason: Pain (severe 7-10) Sodium Chloride (Normal Saline) Confirm Administered Dose 100 mls @ as directed .ROUTE .STK-MED ONE Stop: 08/24/20 21:42 Last Admin: 08/24/20 22:02 Dose: 200 mls/hr Documented by: Ropivacaine (Naropin 0.2%) Confirm Administered Dose 200 mls @ as directed .ROU TE .STK-MED ONE Stop: 08/24/20 22:34 Ampicillin Sodium 1 gm/ Sodium (Chloride) 50 mls @ 100 mls/hr IV Q4H [facility] [place] Last Admin: 08/25/20 01:36 Dose: 100 mls/hr Documented by: Lidocaine HCl (Lidocaine 1% 50 Ml Mdv) 50 ml INJECT ONETIME PRN PRN Reason: Laceration repair Nalbuphine HCl (Nalbuphine 10 Mg/1 Ml Vial) 10 mg IVPUSH Q1H PRN PRN Reason: Pain (severe 7-10) Sterile Water (Water For Irrigation,Sterile 1,000 Ml Container) 1,000 ml IRR ASDIRECTED PRN PRN Reason: delivery - Interaction Disposition, : Needles to Nursery Feeding: Attempted ; Nursed Fair/Poor, Bottle Fed Infant Support Person: - Recovery Exam Fundal Tone: Firm Fundal Level: 1 Fingerbreadths Below Umbilicus Fundal Placement: Midline Lochia Amount: Scant, Small Lochia Color: Rubra/Red Other Perinuem Description: 1 degree laceration repaired Bladder Status: Voiding Urinary Elimination: Voided - Exam General: Alert, Oriented Neck: Supple Lungs: Normal Respiratory Effort GI/Abdominal Exam: Soft, Non-Tender, No Distention Extremities: No Pedal Edema Skin: Warm, Dry, Intact Neurological: No New Focal Deficit Psy/Mental Status: Alert, Normal Affect, Normal Mood - Problem List & Annotations (1) Vaginal delivery SNOMED Code(s): 710446956 Code(s): O80 - ENCOUNTER FOR FULL-TERM UNCOMPLICATED DELIVERY Status: Acute Current Visit: Yes - Problem List Review Problem List Initiated/Reviewed/Updated: Yes - My Orders Last 24 Hours: My Active Orders 08/25/20 09:00 Sertraline [Zoloft] 100 mg PO DAILY busPIRone [Buspar] 10 mg PO BID 08/25/20 21:00 traZODone 50 mg PO BEDTIME 08/26/20 08:43 Ready for Discharge [RC] PER UNIT ROUTINE - Assessment Assessment:: 25yo s/p at 37w6d, PPD#1 - Plan Plan:: Continue routine cares. Patient desires discharge home today if cleared by [facility] ([email or web address] this AM). Reviewed discharge instructions/precautions.
[2020-08-26] MEDS: Sertraline 100 MG Tab PO SCH (08:55)
[2020-08-26] MEDS: busPIRone 5 MG Tab PO SCH (08:55)
[2020-08-26] MEDS: Acetaminophen 500 MG Tab PO PRN (08:55)
== END 2020-08-26 14:10 | disposition home or self-care (01) | DRG 807 ==
LOC: MW.OB 21:20 → MW.OBCHECK 21:20 → MW.OB 21:45 → MW.OBCHECK 21:45 → OBSVTOIN 08-25 03:35 → MW.OB 08-25 08:18
PROVIDERS: ADMIT Obstetrics & Gynecology; ATTEND Obstetrics & Gynecology
PROC: 10E0XZZ Delivery of Products of Conception, External Approach (ICD-10-PCS; principal; 2020-08-25)
PROC: 10907ZC Drainage of Amniotic Fluid, Therapeutic from Products of Conception, Via Natural or Artificial Opening (ICD-10-PCS; 2020-08-25)
PROC: 4A1HXCZ Monitoring of Products of Conception, Cardiac Rate, External Approach (ICD-10-PCS; 2020-08-25)
PROC: 3E0R3BZ Introduction of Anesthetic Agent into Spinal Canal, Percutaneous Approach (ICD-10-PCS; 2020-08-25)
DX: O77.0 Labor and delivery complicated by meconium in amniotic fluid (principal); Z37.0 Single live birth; O69.81X0 Labor and delivery complicated by cord around neck, without compression, not applicable or unspecified; Z3A.37 37 weeks gestation of pregnancy; O70.0 First degree perineal laceration during delivery; O76 Abnormality in fetal heart rate and rhythm complicating labor and delivery; Z20.822 Contact with and (suspected) exposure to COVID-19
CPT/HCPCS: 36415; 51702; 59025; 59409; 85014; 85018; 85027; 86592; 86850; 86900; 86901; A9270-GY; J0290; J2405; J2590; J2795; J3490; J7120; U0002

== ENCOUNTER 2022-02-14 10:48 | Day surgery (SDC) | payer MEDICAID ==
[~2022-02-14 10:48] MED LIST changes: -Acetaminophen 500 MG Tab PO PRN; +Albuterol 0.083% 2.5 MG/3 ML Neb Soln NEB PRN; +HYDROmorphone 1 MG/ML Syringe IVPUSH PRN; +Metoclopramide 10 MG/2 ML SDV IVPUSH PRN; +Morphine 2 MG/ML SYRINGE IVPUSH PRN; +Naloxone 0.4 MG/ML SDV IVPUSH PRN; +Ondansetron 4 MG/2 ML SDV IVPUSH PRN; -Phenylephrine 1% 10 MG/ML SDV ONE; +fentaNYL 50 MCG/ML SDV IVPUSH PRN
[2022-02-14] MEDS ORDERED: Ondansetron 4 MG/2 ML SDV ONE (11:55)
[2022-02-14] MEDS ORDERED: Propofol 200 MG/20 ML SDV ONE ×2 (11:55→13:02)
[2022-02-14] MEDS ORDERED: Lidocaine 2% 5 ML SDV ONE (11:56)
[2022-02-14 12:04] LABS: CARBON DIOXIDE,CO2 24.1 mmol/L (21.0-32.0); POTASSIUM,K 4.3 mmol/L (3.5-5.1)
[2022-02-14] MEDS ORDERED: Lidocaine 1% 20 ML MDV ONE (12:28)
[2022-02-14] MEDS ORDERED: Bupivacaine 0.25% 30 ML SDV ONE (12:28)
[2022-02-14] MEDS ORDERED: Lidocaine 2% 11 ML Jelly Filled Syringe ONE (12:43)
== END 2022-02-14 16:04 | disposition home or self-care (01) ==
LOC: MW.SDS 10:48
PROVIDERS: ATTEND Obstetrics & Gynecology
DX: O34.31 Maternal care for cervical incompetence, first trimester (principal); O99.511 Diseases of the respiratory system complicating pregnancy, first trimester; J45.909 Unspecified asthma, uncomplicated; O99.341 Other mental disorders complicating pregnancy, first trimester; F41.9 Anxiety disorder, unspecified; F32.A Depression, unspecified; F43.10 Post-traumatic stress disorder, unspecified; O99.891 Other specified diseases and conditions complicating pregnancy; M79.7 Fibromyalgia; Z3A.12 12 weeks gestation of pregnancy; Z87.42 Personal history of other diseases of the female genital tract; Z79.899 Other long term (current) drug therapy; Z98.890 Other specified postprocedural states; Z87.891 Personal history of nicotine dependence
CPT/HCPCS: 36415; 59320; 80053; 85025; A9270; J0131; J2405; J2704; J3490; J7120

== ENCOUNTER 2022-08-24 02:59 | Inpatient (IN) | payer MEDICAID ==
[2022-08-24] MEDS: Ibuprofen 800 MG Tab PO PRN ×3 (03:04→20:13)
[2022-08-24] MEDS ORDERED: Lidocaine 1% 50 ML MDV INJECT PRN (03:21)
[2022-08-24] MEDS ORDERED: Carboprost Tromethamine 250 MCG/1 mL Vial IM PRN (03:21)
[2022-08-24] MEDS ORDERED: Sodium Chloride 0.9% 10 ML Syringe FLUSH PRN (03:21)
[2022-08-24] MEDS ORDERED: Butorphanol 1 MG/ML SDV IVPUSH PRN (03:21)
[2022-08-24] MEDS ORDERED: Misoprostol 200 MCG Tab PO PRN (03:21)
[2022-08-24] MEDS ORDERED: Tranexamic Acid 1,000 MG in Sodium Chloride 0.9% 100 ML IV PRN ×2 (03:21→03:49)
[2022-08-24] MEDS ORDERED: Water For Irrigation,Sterile 1,000 ML Container IRR PRN (03:21)
[2022-08-24] MEDS ORDERED: Sodium Chloride 0.9% 20 ML SDV IV PRN (03:21)
[2022-08-24] MEDS ORDERED: Sodium Chloride 0.9% 2.5 ML Syringe FLUSH PRN (03:21)
[2022-08-24] MEDS ORDERED: Methylergonovine 0.2 MG/1 ML Amp IM PRN ×2 (03:21→03:49)
[2022-08-24] MEDS ORDERED: Oxytocin/0.9 % Sodium Chloride 30 UNIT/500 ML BAG IV SCH (03:30)
[2022-08-24] MEDS ORDERED: Lactated Ringers 1,000 ML IV SCH (03:30)
[2022-08-24] MEDS ORDERED: Lanolin 100% Cream 7 GM Tube TOP PRN (03:49)
[2022-08-24] MEDS ORDERED: Bisacodyl 10 MG Supp RECTAL PRN (03:49)
[2022-08-24] MEDS ORDERED: Docusate Sodium 100 MG Cap PO PRN (03:49)
[2022-08-24] MEDS ORDERED: Ibuprofen 400 MG Tab PO PRN (03:49)
[2022-08-24] MEDS ORDERED: Acetaminophen 500 MG Tab PO PRN ×2 (03:49)
[2022-08-24 04:21] LABS: HEMATOCRIT 33.1 % (36.0-46.0); HEMOGLOBIN 10.2 g/dL (12.0-16.0); MEAN CORPUSCULAR HEMOGLOBIN 22.4 pg (27.0-32.0); MEAN CORPUSCULAR HGB CONC 30.8 g/dL (31.0-37.0); MEAN CORPUSCULAR VOLUME 72.7 fL (80.0-98.0); RED BLOOD CELL COUNT 4.55 M/uL (4.30-5.90); WHITE BLOOD CELL COUNT,WBC 11.67 K/uL (4.0-11.0)
[2022-08-24] MEDS: Benzocaine/Menthol 20%-0.5% Spray 78 GM Cannister TOP PRN (05:21)
[2022-08-24] MEDS: Witch Hazel Medicated Pads 40/Jar TOP PRN (05:22)
[2022-08-24 06:36] LABS: AMPHETAMINES SCREEN, URINE NEGATIVE (CUTOFF=500); BARBITURATE SCREEN,URINE NEGATIVE (CUTOFF=200); BENZODIAZEPINES SCREEN,URINE NEGATIVE (CUTOFF=150); BUPRENORPHINE SCREEN,URINE NEGATIVE (CUTOFF=10); METHADONE SCREEN, URINE NEGATIVE (CUTOFF=200); METHAMPHETAMINES SCREEN, URINE NEGATIVE (CUTOFF=500); OXYCODONE SCREEN,URINE NEGATIVE (CUT0FF=100); PCP SCREEN,URINE NEGATIVE (CUTOFF=25); PROPOXYPHENE SCREEN,URINE NEGATIVE (CUTOFF=300); THC SCREEN,URINE 20 NG/ML NEGATIVE (CUTOFF=50)
[2022-08-24] MEDS ORDERED: PRE NATAL VITAMIN PO SCH (09:00)
[2022-08-24] MEDS: Prenatal Multivitamin with Calcium/Folic Acid/Iron Tab PO SCH (10:38)
[2022-08-25 06:39] LABS: HEMATOCRIT 27.7 % (36.0-46.0); HEMOGLOBIN 8.2 g/dL (12.0-16.0)
[2022-08-25] MEDS: Ibuprofen 800 MG Tab PO PRN (08:24)
[2022-08-25] MEDS: Prenatal Multivitamin with Calcium/Folic Acid/Iron Tab PO SCH (08:25)
[2022-08-26] MEDS ORDERED: Oxytocin/0.9 % Sodium Chloride 30 UNIT/500 ML BAG ONE (04:16)
[2022-08-26] MEDS: Witch Hazel Medicated Pads 40/Jar TOP PRN (10:28)
[2022-08-26] MEDS: Benzocaine/Menthol 20%-0.5% Spray 78 GM Cannister TOP PRN (10:29)
== END 2022-08-26 11:40 | disposition home or self-care (01) | DRG 807 ==
LOC: MW.OB 02:59
PROVIDERS: ADMIT Obstetrics & Gynecology; ATTEND Obstetrics & Gynecology
PROC: 10E0XZZ Delivery of Products of Conception, External Approach (ICD-10-PCS; principal; 2022-08-24)
PROC: 0KQM0ZZ Repair Perineum Muscle, Open Approach (ICD-10-PCS; 2022-08-24)
DX: O62.3 Precipitate labor (principal); Z37.0 Single live birth; Z3A.39 39 weeks gestation of pregnancy; O99.824 Streptococcus B carrier state complicating childbirth; O99.02 Anemia complicating childbirth; O77.0 Labor and delivery complicated by meconium in amniotic fluid; O70.1 Second degree perineal laceration during delivery; D64.9 Anemia, unspecified
CPT/HCPCS: 36415; 59409; 59414; 80305-QW; 85014; 85018; 85027; 86592; 86850; 86900; 86901; A9270-GY; J2001; J2590; J7120